=== PATIENT | male | born 1990 | race Caucasian/White ===

== ENCOUNTER 2024-12-07 19:34 | Inpatient (IN) | payer OTHER, SELFPAY ==
--- NOTE | 2024-12-07 14:48 | PM.EVENT ---
Documented by User: Meggan Morrell APRN 12/07/24 14:51 Event Note Date of Service: 12/07/24 Event Note: review with Dr. Bozena Fraser. Pt had a self inflicted injury with scissors to the neck with two trach injuries. Surgery was completed 11/30/24. Pt has absorbing sutures which will need no intervention. He has had no vocal changes, is metabolically stable, is on a regular diet and requires no further acute medical care. He is considered cleared for psychiatric transfer. Time Spent With Patient Time: Total time managing care of this patient today ____ minutes. Documented by User: Suhail Hsu MD 12/10/24 21:11 Event Note Date of Service: 12/10/24
--- OUTSIDE RECORDS SUMMARY | 2024-12-07 19:42 | XMS_ITS | Encounter Summary ---
Author Organization [facility] Address [address] [place] [address] Care Team Providers Care Scientific Director Name Role Phone Pcp, No Primary Care Provider Unavailabl e Encounter Details Date Type Department Care Team (Latest Contact Info) Description 12/01/2024 Travel Social History Tobacco Use Types Packs/Day Years Used Date Smoking Tobacco: Never Assessed Sex and Gender Information Value Date Recorded Sex Assigned at Male 11/30/2024 11:55 PM EST Legal Sex Male 10:49 PM EST Gender Identity Male 11/30/2024 11:55 PM EST Sexual Orientation Straight 11/30/2024 11 :55 PM EST documented as of this encounter Plan of Treatment Upcoming Encounters Date Type Department Care Team (Late st Contact Info) Description 12/18/2024 2:00 PM EST Consult [facility] [address] [place] [id number] documented as of this encounter Visit Diagnoses Not on filedocumented in this encounter Care Teams Scientific Director Relationship Specialty Start Date End Date PcpRoshni [id number] PCP - General 12/01/24 documented as of this encounter
--- OUTSIDE RECORDS SUMMARY | 2024-12-07 19:42 | XMS_ITS | Encounter Summary ---
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 minimize radiationexposure. Image post-processing was performed using Maximum IntensityProjection (MIP) reconstruction techniques. COMPARISON: None. FINDINGS: NON-CONTRAST CT BRAIN: Intra-axial structures: Sommer-white matter differentiation is normal. Thereis no evidence of acute infarct, hemorrhage, mass or mass effect. Ventricular system: Normal for age. Extra-axial spaces: Normal for age. Vasculature: The visualized vessels are normal. Orbits: The visualized orbits are normal. Calvarium: Normal. Paranasal sinuses: Appear normal where visible. CTA BRAIN: Anterior Circulation: Large Vessel Occlusion (ICA, M1, or proximal M2): None. Other Findings: No aneurysm or high grade stenosis identified. Posterior Circulation: Large Vessel Occlusion (Vertebral or basilar): None. Other Findings: No aneurysm or high grade stenosis identified. CTA NECK: Right Carotid Artery: No hemodynamically significant stenosis or dissection identified. Left Carotid Artery: No hemodynamically significant stenosis or dissection identified. Vertebral Arteries: No hemodynamically significant stenosis or dissection. Dural venous sinuses: Although the examination was not optimized fordetection of intracranial venous pathology, the major dural venous sinusesappear grossly patent where seen. Musculoskeletal: No acute abnormality identified. There is pneumomediastinum in the partially imaged upper mediastinum. Deepsoft tissue gas is seen in the midline neck in the retropharynx and in thebilateral carotid spaces and in the visceral space. Gas is also seen inthe superficial subcutaneous soft tissues in the midline infrahyoid region. No large neck soft tissuehematoma. At the ventral aspect of the midline trachea between the levelof the sternal notch and the thyroid gland, there is mild irregularity ofthe ventral wall of the trachea, with at least one focus of intramural gas in the trachea. This mayrepresent a site of airway injury. IMPRESSION: NON-CONTRAST HEAD CT: No evidence of acute intracranial pathology on the non-contrast CT. CTA BRAIN: No evidence of large vessel occlusion, high grade stenosis, or aneurysm inthe brain. CTA NECK: 1. No evidence of traumatic arterial injury. 2. Extensive soft tissue gas in the deep spaces of the neck as well as inthe partially imaged upper mediastinum. Given this in conjunction with anarea of irregularity involving the ventral, midline wall of the tracheadiscussed above, the findings are consistent with tracheal airway injury. NASCET criteria were used for stenosis measurement. At the time of interpretation, the patient had already been taken to theoperating room for repair of a tracheal injury. RS: [id number] Result Kandis Douglas MD IMG CT ORDERABLES Final Result * X-ray chest 1 view portable (11/30/2024 11:10 PM EST) Anatomical Region Laterality Modality Chest, Ortho Chest Digital Radio graphy 12/01/2024 9:39 AM EST Impressions 12/01/2024 9:40 AM EST FINDINGS/IMPRESSION: Lines/tubes: None. Lungs/pleura: The lung volumes are low. Accounting for this, grossly clear. Heart and mediastinum: Unremarkable. ?? Bones and soft tissues: No acute abnormality. RS: [id number] Narrative 12/01/2024 9:40 AM EST HISTORY: Polytrauma, blunt TECHNIQUE: Single view of the chest was acquired. Procedure Note Maximus Maciel Jr., MD - 12/01/2024 HISTORY: Polytrauma, blunt TECHNIQUE: Single view of the chest was acquired. FINDINGS/IMPRESSION: Lines/tubes: None. Lungs/pleura: The lung volumes are low. Accounting for this, grosslyclear. Heart and mediastinum: Unremarkable. Bones and soft tissues: No acute abnormality. RS: [id number] Result Kandis Douglas MD G DIAGNOSTIC IMAGING ORDERABLE S Final Result * Type and Screen (11/30/2024 10:59 PM EST) ABO A 12/01/2024 12:18 AM EST [facility] RH Negative 12/01/2024 12:18 AM EST [facility] Antibody Screen Negative 12/01/2024 12:18 AM EST [facility] Blood Venipuncture / Unknown 11/30/2024 10:59 PM EST 11/30/2024 11:05 PM EST Result Kandis Douglas MD BLOOD BANK TEST ORDERABLES Final Result [facility] Blood Bank [address] [place] [address] * (ABNORMAL) blood alcohol (11/30/2024 10:59 PM EST) Ethanol Lvl 149(H) <10 mg/dL 11/30/2024 11:29 PM EST [facility] Blood Structure of right ureter / Unknown Venipuncture / Unknown 11/30/2024 10:59 PM EST 11/30/2024 11:05 PM EST us Adeel Douglas MD LAB BLOOD ORDERABLES Final Resul t Performing Organization Address [facility] de Phone Number [facility] [address] [place] [phone] * APTT (11/30/2024 10:59 PM EST) APTT 32.3 25.1 - 36.5 seconds 11/30/2024 11:19 PM EST [facility] Blood Structure of right ureter / Unknown Venipuncture / Unknown 11/30/2024 10:59 PM EST 11/30/2024 11:05 PM EST Narrative [facility] - 11/30/2024 11:19 PM EST New reference range reflects new method. us Adeel Douglas MD LAB BLOOD ORDERABLES Final Resul t Performing Organization Address [facility] de Phone Number [facility] [address] [place] [phone] * Protime-INR (11/30/2024 10:59 PM EST) Protime 10.8 9.4 - 12.5 seconds 11/30/2024 11:19 PM EST [facility] INR 0.93 0.79 - 1.06 11/30/2024 11:19 PM EST [facility] Blood Structure of right ureter / Unknown Venipuncture / Unknown 11/30/2024 10:59 PM EST 11/30/2024 11:05 PM EST Narrative [facility] - 11/30/2024 11:19 PM EST New reference range reflects new method INR Recommendations for Oral Anticoagulant Therapy ? Populations ?INR Value ? Low Intensity OAC Therapy ?1.5-2.0 Mod Intensity OAC Therapy ?2.0-3.0 High Intensity OAC Therapy ?? 2.5-4.0 us Adeel Douglas MD LAB BLOOD ORDERABLES Final Resul t [facility] [address] [place] [address] * (ABNORMAL) Basic metabolic panel (11/30/2024 10:59 PM EST) Sodium 144 136 - 145 mEq/L 11/30/2024 11:27 PM EST [facility] Potassium 3.6 3.5 - 5.1 mEq/L 11/30/2024 11:27 PM [facility] Chloride 111(H) 98 - 109 mEq/L 11/30/2024 11:27 PM [facility] CO2 24 20 - 31 mEq/L 11/30/2024 11:27 PM [facility] Anion Gap 9 4 - 15 mEq/L 11/30/2024 11:27 PM EST [facility] Glucose 118(H) 70 - 100 mg/dL 11/30/2024 11:27 PM [facility] Creatinine 0.98 0.60 - 1.10 mg/dL 11/30/2024 11:27 PM [facility] eGFR (Male) >60 60 - 115 mL/min 11/30/2024 11:27 PM [facility] BUN 10 9 - 23 mg/dL 11/30/2024 11:27 PM [facility] Calcium 9.1 8.3 - 10.6 mg/dL 11/30/2024 11:27 PM [facility] Blood Structure of right ureter / Unknown Venipuncture / Unknown 11/30/2024 10:59 PM EST 11/30/2024 11:05 PM EST Narrative [facility] - 11/30/2024 11:27 PM EST The calcium reference range has been changed as of 09/18/2024. us Adeel Douglas MD LAB BLOOD ORDERABLES Final Resul t [facility] [address] [place] [address] * (ABNORMAL) CBC and Auto Differential (11/30/2024 10:59 PM EST) WBC 7.3 4.8 - 11.2 10*3/??L 11/30/2024 11:10 PM EST [facility] RBC 4.52 4.00 - 5.90 10*6/??L 11/30/2024 11:10 PM [facility] HGB 13.2(L) 14.0 - 17.2 g/dL 11/30/2024 11:10 PM [facility] HCT 39.1(L) 40.0 - 52.0 % 11/30/2024 11:10 PM [facility] MCV 86.5 82.0 - 98.0 fL 11/30/2024 11:10 PM EST [facility] MCH 29.3 27.0 - 35.0 pg 11/30/2024 11:10 PM EST [facility] MCHC 33.9 32.0 - 37.0 g/dL 11/30/2024 11:10 PM EST [facility] RDW 14.6 12.0 - 15.0 % 11/30/2024 11:10 PM EST [facility] PLT 275 150 - 400 10*3/??L 11/30/2024 11:10 PM [facility] MPV 7.4 7.0 - 14.0 fL 11/30/2024 11:10 PM EST [facility] Neut % 52.0 45.0 - 85.0 % 11/30/2024 11:10 PM EST [facility] Lymph % 40.0 15.0 - 45.0 % 11/30/2024 11:10 PM EST [facility] [place] % 4.8 0.0 - 12.0 % 11/30/2024 11:10 PM EST [facility] Eos % 2.6 0.0 - 7.0 % 11/30/2024 11:10 PM EST [facility] Baso % 0.6 0.0 - 3.0 % 11/30/2024 11:10 PM EST [facility] NRBC% 0 0 /100 WBC /100 WBC 11/30/2024 11:10 PM EST [facility] Neut # 3.8 2.2 - 9.5 10*3/??L 11/30/2024 11:10 PM EST [facility] [place] # 2.9 0.7 - 5.0 10*3/??L 11/30/2024 11:10 PM EST [facility] [place] # 0.4 0.0 - 1.3 10*3/??L 11/30/2024 11:10 PM EST [facility] Eos # 0.2 0.0 - 0.4 10*3/??L 11/30/2024 11:10 PM EST [facility] Baso # 0.0 0.0 - 0.3 10*3/??L 11/30/2024 11:10 PM EST [facility] Blood Venipuncture / Unknown 11/30/2024 10:59 PM EST 11/30/2024 11:06 PM EST us Adeel Douglas MD LAB BLOOD ORDERABLES Final Resul t [facility] [address] [place] [address] documented in this encounter Visit Diagnoses Not on filedocumented in this encounter Admitting Diagnoses Diagnosis Perforation of the trachea documented in this encounter Administered Medications Inactive Administered Medications - up to 3 most recent administrations Medication Order MAR Action Action Date Dose Rate Site acetaminophen (TYLENOL) tablet 650 mg 650 mg, Oral, Every 4 hours PRN, mild pain (1-3), Starting on Tue12/04/24 at 2102, Adult MAX: NOT to exceed 4 grams of ACETAMINOPHEN per 24 hrs from ALL sources. Given 12/07/2024 4:18 PM EST 650 mg Given 12/05/2024 9:57 PM EST 650 mg ARIPiprazole (ABILIFY) tablet 5 mg 5 mg, Oral, At bedtime, First dose (after last reorder) on [facility] 12/06/24 at 2100 Given 12/06/2024 9:14 PM EST 5 mg busPIRone (BUSPAR) tablet 10 mg 10 mg, Oral, 3 times daily, First dose (after last reorder) on [facility] 12/06/24 at 1300 Given 12/07/2024 12:37 PM EST 10 mg Given 12/07/2024 9:15 AM EST 10 mg Given 12/06/2024 9:15 PM EST 10 mg enoxaparin (LOVENOX) injection prefilled syringe 40 mg 40 mg, Subcutaneous, Every 24 hours scheduled, First dose on Tue12/01/24 at 0900, Pharmacy to automatically adjust dose for renal impairment. SC ADMINISTRATION INSTRUCTIONS: - Administer by deep subcutaneous injection with patient lying down. - Alternate injection sites between left and right anterolateral and left and right posterolateral abdominal wall. - Do not rub injection site after completion of injection. Warning - Needlestick Risk! Push syringe plunger in fully after administration to activate safety device. DO NOT MIX with other injections or infusions. Given 12/04/2024 9:23 AM EST 40 mg Abdominal Tissue Given 12/03/2024 8:29 AM EST 40 mg Ab dominal Tissue Given 12/02/2024 8:36 AM EST 40 mg Ab dominal Tissue folic acid tablet 1 mg 1 mg, Oral, Daily, First dose on Tue12/07/24 at 0900, This patient has met the following criteria for the conversion from IV to PO. The criteria met is as follows: 1) Must have a functioning GI tract (full liquid diet or better). 2) Must have received 2 oral medications prior to the conversion occurring 3) Has no severe or persistent vomiting. The IV formulation has been discontinued, the oral has been entered with a therapeutic interchange. Given 12/07/2024 9:11 AM EST 1 mg ketorolac (TORADOL) injection 15 mg 15 mg, Intravenous, Every 6 hours PRN, moderate pain (4-6), Starting on Tue12/05/24 at 1043, For 5 days LORazepam (ATIVAN) tablet 1 mg 1 mg, Oral, 3 times daily PRN, agitation, anxiety, Starting on Tue12/03/24 at 1543 Given 12/07/2024 4:18 PM EST 1 m g Given 12/07/2024 12:37 PM EST 1 mg Given 12/06/2024 5:35 PM EST 1 mg melatonin tablet 3 mg 3 mg, Oral, At bedtime PRN, sleep, Starting on Tue12/03/24 at 1543 Given 12/05/2024 8:06 PM EST 3 mg Given 12/04/2024 9:01 PM EST 3 mg ondansetron (ZOFRAN) injection 4 mg 4 mg, Intravenous, Every 6 hours PRN, nausea, Starting on Tue12/01/24 at 0255 Given 12/04/2024 2:40 PM EST 4 mg oxyCODONE (ROXICODONE) immediate release tablet 5 mg 5 mg, Oral, Every 4 hours PRN, severe pain (7-10), Starting on Tue12/05/24 at 1119, Look-alike / Sound-alike Medication Given 12/07/2024 9:11 AM EST 5 mg Given 12/06/2024 11:39 PM EST 5 mg Given 12/06/2024 5:35 PM EST 5 mg pantoprazole (PROTONIX) delayed release EC tablet 40 mg 40 mg, Oral, Daily, First dose on Tue12/06/24 at 0900, DELAYED-RELEASE TABLETS SHOULD NOT BE SPLIT, CRUSHED OR CHEWED Given 12/07/2024 9:11 AM EST 40 mg Given 12/06/2024 9:44 AM EST 40 mg prazosin (MINIPRESS) capsule 2 mg 2 mg, Oral, At bedtime, First dose on Tue12/05/24 at 2100, Hold for SBP below 100 mmHg Given 12/06/2024 9:14 PM EST 2 mg Given 12/05/2024 8:04 PM EST 2 mg tamsulosin (FLOMAX) capsule 0.4 mg 0.4 mg, Oral, Daily, First dose on Tue12/03/24 at 1615, Capsule may be opened but granules from capsule should NOT BE CHEWED, CRUSHED or DISSOLVED. Contents of capsule may be administered in a small quantity of liquid or soft food. Given 12/07/2024 9:11 AM EST 0.4 mg Given 12/06/2024 9:44 AM EST 0.4 mg Given 12/04/2024 9:22 AM EST 0.4 mg thiamine (VITAMIN B-1) tablet 200 mg 200 mg, Oral, Daily, First dose on [facility] 12/06/24 at 0945 Given 12/07/2024 9:11 AM EST 200 mg Given 12/06/2024 9:44 AM EST 200 mg topiramate (TOPAMAX) tablet 25 mg 25 mg, Oral, 2 times daily, First dose (after last reorder) on [facility] 12/06/24 at 1300, Due to bitter taste it is not recommended to crush, break, or chew immediate release tablet if taken orally. Given 12/07/2024 9:11 AM EST 25 mg Given 12/06/2024 9:14 PM EST 25 mg Given 12/06/2024 1:04 PM EST 25 mg documented in this encounter Active and Recently Administered Medications Times are shown in EST. Scheduled Medication Order 12/05/2024 12/06/2024 12/07/2024 ARIPiprazole (ABILIFY) tablet 5 mg 5 mg, Oral, At bedtime, First dose (after last reorder) on [facility] 12/06/24 at 2100 2114 (Given - Provider: Natacha Reyes, TIMOTEO) busPIRone (BUSPAR) tablet 10 mg 10 mg, Oral, 3 times daily, First dose (after last reorder) on [facility] 12/06/24 at 1300 1304 (Given - Provider: Aliyah Welch RN)2115 (Given - Provider: Natacha Reyes, TIMOTEO) 0915 (Given - Provider: Jimenez Reid, TIMOTEO)1237 (Given - Provider: Jimenez Reid RN) chlorhexidine gluconate topical 1 Application () 1 Application, Topical, Every 24 hours, First dose on [facility] 12/01/24 at 2200, For 5 days, -Scrub full body (do not apply above jawline) daily for 5 (five) days. For patients with invasive lines and/or devices, obtain a new order to continue with CHG beyond 5 (five) days of initial treatment; may discontinue the order upon their removal. -Chlorhexidine gluconate (CHG) product selection is based on unit supply. *FOR TOPICAL USE* 2205 (Given - Provider: Natacha Reyes RN) cloNIDine (CATAPRES) tablet 0.1 mg 0.1 mg, Oral, Daily, First dose (after last reorder) on [facility] 12/06/24 at 1200, Hold for SBP below 100 mmHg or HR below 50 Look-alike / Sound-alike Medication 1252 (Not Given - Provider: Aliyah Welch RN - Reason: Patient/family refused) 0932 (Not Given - Provider: Jimenez Reid RN - Reason: Not Clinically Indicated) enoxaparin (LOVENOX) injection prefilled syringe 40 mg 40 mg, Subcutaneous, Every 24 hours scheduled, First dose on 12/01/24 at 0900, Pharmacy to automatically adjust dose for renal impairment. [place] ADMINISTRATION INSTRUCTIONS: - Administer by deep subcutaneous injection with patient lying down. - Alternate injection sites between left and right anterolateral and left and right posterolateral abdominal wall. - Do not rub injection site after completion of injection. Warning - Needlestick Risk! Push syringe plunger in fully after administration to activate safety device. DO NOT MIX with other injections or infusions. 1027 (Not Given - Provider: Jimenez Reid RN - Reason: Patient/family refused) 0917 (Not Given - Provider: Aliyah Welch RN - Reason: Patient/family refused) 0932 (Not Given - Provider: Jimenez Reid RN - Reason: Patient/family refused) folic acid 1 mg in sodium chloride (NS) 0.9 % 50 mL IVPB (CANCELED) 1 mg, Intravenous, Administer over 60 Minutes, Daily at 1200, First dose on 12/01/24 at 1200, PHARMACY MIXED IV *See PHARMACY DROP OFF LOCATION* Refrigerate 1238 (Not Given - Provider: Jimenez Reid RN - Reason: Patient/family refused) 1129 (New Bag - Provider: Aliyah Welch, TIMOTEO)1230 (Stopped - Provider: Aliyah Welch RN) folic acid tablet 1 mg 1 mg, Oral, Daily, First dose on Tue12/07/24 at 0900, This patient has met the following criteria for the conversion from IV to PO. The criteria met is as follows: 1) Must have a functioning GI tract (full liquid diet or better). 2) Must have received 2 oral medications prior to the conversion occurring 3) Has no severe or persistent vomiting. The IV formulation has been discontinued, the oral has been entered with a therapeutic interchange. 0911 (Given - Provider: Jimenez Reid RN) mupirocin (BACTROBAN) 2 % ointment 1 Application () 1 Application, Each Nostril, 2 times daily, First dose on 12/01/24 at 0900, For 5 days, Apply to nares twice daily for 5 (five) days. For patients requiring surgery, the goal is to complete a minimum of 2 (two) applications prior to surgery. *For Topical Use* 1027 (Not Given - Provider: Jimenez Reid RN - Reason: Patient/family refused)2204 (Given - Provider: Natacha Reyes RN) pantoprazole (PROTONIX) delayed release EC tablet 40 mg 40 mg, Oral, Daily, First dose on Tue12/06/24 at 0900, DELAYED-RELEASE TABLETS SHOULD NOT BE SPLIT, CRUSHED OR CHEWED 09 (Given - Provider: Aliyah Welch RN) 0911 (Given - Provider: Jimenez Reid RN) prazosin (MINIPRESS) capsule 2 mg 2 mg, Oral, At bedtime, First dose on Tue12/05/24 at 2100, Hold for SBP below 100 mmHg 2003 (Given - Provider: Natacha Reyes RN) 2113 (Given - Provider: Natacha Reyes RN) tamsulosin (FLOMAX) capsule 0.4 mg 0.4 mg, Oral, Daily, First dose on 12/03/24 at 1615, Capsule may be opened but granules from capsule should NOT BE CHEWED, CRUSHED or DISSOLVED. Contents of capsule may be administered in a small quantity of liquid or soft food. 1027 (Not Given - Provider: Jimenez Reid RN - Reason: Patient/family refused) 0944 (Given - Provider: Aliyah Welch RN) 0911 (Given - Provider: Jimenez Reid RN) thiamine (VITAMIN B-1) tablet 200 mg 200 mg, Oral, Daily, First dose on Talya 12/06/24 at 0945 0944 (Given - Provider: Aliyah Welch, TIMOTEO) 0911 (Given - Provider: Jimenez Reid, TIMOTEO) topiramate (TOPAMAX) tablet 25 mg 25 mg, Oral, 2 times daily, First dose (after last reorder) on Talya 12/06/24 at 1300, Due to bitter taste it is not recommended to crush, break, or chew immediate release tablet if taken orally. 1304 (Given - Provider: Aliyah Welch RN)2114 (Given - Provider: Natacha Reyes RN) 0911 (Given - Provider: Jimenez Reid RN) PRN Medication Order 12/05/2024 12/06/2024 12/07/2024 acetaminophen (TYLENOL) tablet 650 mg 650 mg, Oral, Every 4 hours PRN, mild pain (1-3), Starting on Tue12/04/24 at 2102, Adult MAX: NOT to exceed 4 grams of ACETAMINOPHEN per 24 hrs from ALL sources. 215 (Given - Provider: Natacha Reyes RN) 1618 (Given - Provider: Jimenez Reid RN) ketorolac (TORADOL) injection 15 mg 15 mg, Intravenous, Every 6 hours PRN, moderate pain (4-6), Starting on Tue12/05/24 at 1043, For 5 days LORazepam (ATIVAN) tablet 1 mg 1 mg, Oral, 3 times daily PRN, agitation, anxiety, Starting on Tue12/03/24 at 1543 1032 (Given - Provider: Jimenez Reid RN) 0944 (Not Given - Provider: Aliyah Welch RN - Reason: Patient/family refused)1735 (Given - Provider: Aliyah Welch RN) 1237 (Given - Provider: Jimenez Reid, TIMOTEO)1618 (Given - Provider: Jimenez Reid, TIMOTEO) melatonin tablet 3 mg 3 mg, Oral, At bedtime PRN, sleep, Starting on 12/03/24 at 1543 2005 (Given - Provider: Natacha Reyes RN) ondansetron (ZOFRAN) injection 4 mg 4 mg, Intravenous, Every 6 hours PRN, nausea, Starting on 12/01/24 at 0255 oxyCODONE (ROXICODONE) immediate release tablet 5 mg 5 mg, Oral, Every 4 hours PRN, severe pain (7-10), Starting on Tue12/05/24 at 1119, Look-alike / Sound-alike Medication 1134 (Given - Provider: Jimenez Reid, TIMOTEO)2005 (Given - Provider: Natacha Reyes RN) 0946 (Given - Provider: Aliyah Welch, TIMOTEO)1735 (Given - Provider: Aliyah Welch RN)2339 (Given - Provider: Neva Salazar RN) 0911 (Given - Provider: Jimenez Reid RN) documented in this encounter Care Teams Site Safety Coordinator Relationship Specialty Start [place] [id number] PCP - General 12/01/24 documented as of this encounter
--- OUTSIDE RECORDS SUMMARY | 2024-12-07 19:42 | XMS_ITS | Encounter Summary ---
Author Organization [facility] Address [address] [place] [address] Care Team Providers Care Authorizer Name Role Phone Pcp, No Primary Care Provider Unavailabl e Reason for Visit * Auth/Cert Specialty Diagnoses / Procedures Referred By Contac t Referred To Contact Diagnoses Perforation of the trachea Referral ID Status Reason Start Date Expiration Date Visits Re quested Visits Authorized [id number] 1 1 Encounter Details Date Type Department Care Team (Late st Contact Info) Description 12/01/2024 12:32 AM EST Anesthesia Event [facility] [address] [place] [phone] Irvin Moncada MD [address] [place] [id number] Anesthesia Record Procedure Summary Procedure Name Responsible Anesthesiologist Anesthesia Start Time Anesthesia Stop Time NECK EXPLORATION, TRACHEAL REPAIR Irvin Moncada MD 12/01/24 0032 12/01/24 0244 Events Date Time Event Comment 12/01/2024 0005 0032 AN Equip Check 0032 Anesthesia Ready 0032 An Start 0032 An Start Data 0035 An Induction 0036 An Intubation 0228 an stop data 0231 Quick Note Pt transferred to ICU with 100% fio2 ambu, full ASA monitors, pt stable for transport 0244 PACU Handoff Handoff communi cation to SCIENTIST including the followin. Allergies 2. Surgical Procedure 3. Type of anesthetic 4. Relevant PMHx 5. Surgical/Anesthetic Complications 6. Pre-operative cognitive function 7. Lines/tubes/catheters 8. Fluid management 9. Pain/antiemetic management 10. Assessment of arrival vital signs 11. Blood Loss 12. Medications administered during procedure including last dose and time 13. Address any SCIENTIST questions before leaving. 0244 An Stop Meds Name Total midazolam (VERSED) injection 2 mg/2 mL 2 mg propofol (DIPRIVAN) injection 10 mg/mL 2 00 mg lidocaine (XYLOCAINE) 2 % local injectio n 50 mg fentaNYL (SUBLIMAZE) injection 150 mcg rocuronium (ZEMURON) 50 mg/5 mL injectio n 150 mg dexamethasone (DECADRON) injection 4 mg/ mL 10 mg ePHEDrine injection 5 mg/mL syringe 15 m g PHENYLephrine (EMORY-SYNEPHRINE) injection 120 mcg succinylcholine (QUELICIN) 20 mg/mL inje ction 100 mg propofol (DIPRIVAN) infusion 10 mg/mL 80 4.33 mg ceFAZolin (ANCEF) injection 2 g dexmedeTOMIDine (PRECEDEX) injection 200 mcg/2 mL vial 6 mcg lactated ringer's infusion 1,000 mL * Agents Name O2 Inspired O2 N2O Air Sevoflurane Inspired Sevoflurane * Blood No blood administrations on file. Lines, Drains, and Airways Type Details Placement Removal Incision 12/01/24; 222; Neck ; Other (Comment) 12/01/24222 by Michaela Lux RN ETT Placement Date: 06/17; Placement Time: 003; Mask Ventilation: Mask ventilation not attempted (0); Technique: Video laryngoscopy, Stylet, Cricoid Pressure, Rapid sequence; Type: Cuffed, Oral, Inflated; Tube Size: 8 mm; Laryngoscope: Quiros; Blade Size: 3; Location: Oral; Grade View: 1; Insertion Attempts: 1; Placement Verification: Auscultation, End tidal CO2; Secured at: 22 cm; Airway Comment: RSI, tegaderm dressing over neck wound that does inflate with deep breaths, cricoid pressure, no trauma, #8.0 ETT passed easily with g1 view video visualization; Placed By: Anesthesiologist; Removal Date: 12/03/24; Removal Time: 0715 (removed by patient) 12/01/24 0036 by Samanta Harris CRNA 12/03/24714 by Dagmar Patrick RN Peripheral IV Placement Date: 06/17; Placement Time: 0258; Catheter Size: 18 G; Orientation: Left, Posterior; Location: Hand; Site Prep: Alcohol; Local Anes: None; Technique: Anatomical landmarks; Inserted by: ED; Removal Date: 12/04/24; Removal Time: 1315; Removal Reason: Removed by patient 12/01/24 0258 by Matilda Woodall RN 12/04/24 1316 by Lety Clemente RN documented in this encounter Social History Tobacco Use Types Packs/Day Years Used Date Smoking Tobacco: Never Assessed Sex and Gender Information Value Date Recorded Sex Assigned at Male 11/30/2024 11:55 PM EST Legal Sex Male 10:49 PM EST Gender Identity Male 11/30/2024 11:55 PM EST Sexual Orientation Straight 11/30/2024 11 :55 PM EST documented as of this encounter OR Notes * Anesthesia Postprocedure Evaluation - Irvin Moncada MD - 12/01/2024 4:10 AM EST Patient: Michael Turner Procedure(s): NECK EXPLORATION, TRACHEAL REPAIR (N/A) BRONCHOSCOPY, FLEXIBLE ESOPHAGOGASTRODUODENOSCOPY Anesthesia type: general Vitals: Vitals Value Taken Time BP 85/44 12/01/24 0400 Temp 36.8 ??C 12/01/24 0400 Pulse 57 12/01/24 0410 Resp 12 12/01/24 0410 SpO2 97 % 12/01/24 0410 Vitals shown include unfiled device data. Anesthesia Post Evaluation Patient location during evaluation: ICU Patient participation: complete - patient cannot participate Post-procedure mental status: sedated. Pain management: adequate Airway patency: intubated. Cardiovascular status: stable Respiratory status: ventilated. Hydration status: adequate No notable events documented. 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 Use of blood products discussed with patient who consented to blood products. Post-Op Plan: PACU documented in this encounter Plan of Treatment Upcoming Encounters Date Type Department Care Team (Late st Contact Info) Description 12/18/2024 2:00 PM EST Consult [facility] [address] [place] [address], [place] [phone] documented as of this encounter Visit Diagnoses Not on filedocumented in this encounter Administered Medications Inactive Administered Medications - up to 3 most recent administrations Medication Order MAR Action Action Date Dose Rate Site ceFAZolin (ANCEF) injection Intravenous, As needed, Starting on 12/01/24 at 0105, Anesthesia Intra-op Given 12/01/2024 12:50 AM EST 2 g dexAMETHasone (DECADRON) injection Intravenous, As needed, Starting on 12/01/24 at 0219, Anesthesia Intra-op Given 12/01/2024 2:19 AM EST 10 mg dexmedeTOMIDine (PRECEDEX) injection Intravenous, As needed, Starting on 12/01/24 at 0225, Anesthesia Intra-op Given 12/01/2024 2:25 AM EST 6 mcg ePHEDrine sulfate injection Intravenous, As needed, Starting on 12/01/24 at 0059, Anesthesia Intra-op Given 12/01/2024 1:45 AM EST 5 mg Given 12/01/2024 1:01 AM EST 5 mg Given 12/01/2024 12:59 AM EST 5 mg fentaNYL (SUBLIMAZE) injection Intravenous, As needed, Starting on 12/01/24 at 0035, Anesthesia Intra-op Given 12/01/2024 2:25 AM EST 50 mcg Given 12/01/2024 12:35 AM EST 100 mcg lactated Ringer's infusion Intravenous, Continuous PRN, Starting on 12/01/24 at 0032, Anesthesia Intra-op New Bag 12/01/2024 2:33 AM EST New Bag 12/01/2024 12:32 AM EST lidocaine 2 % (XYLOCAINE) injection (Multiple-dose vial) Intravenous, As needed, Starting on 12/01/24 at 0035, Anesthesia Intra-op Given 12/01/2024 12:35 AM EST 50 mg midazolam (VERSED) injection Intravenous, As needed, Starting on 12/01/24 at 0225, Anesthesia Intra-op Given 12/01/2024 2:25 AM EST 2 mg PHENYLephrine (EMORY-SYNEPHRINE) injection Intravenous, As needed, Starting on 12/01/24 at 0155, Anesthesia Intra-op Given 12/01/2024 2:10 AM EST 40 mcg Given 12/01/2024 1:55 AM EST 40 mcg Given 12/01/2024 1:50 AM EST 40 mcg propofol (DIPRIVAN) infusion 10 mg/mL Intravenous, Continuous PRN, Starting on 12/01/24 at 0105, Anesthesia Intra-op New Bag 12/01/2024 1:05 AM EST 100 mcg/kg/min 59.58 mL/hr propofol (DIPRIVAN) injection Intravenous, As needed, Starting on 12/01/24 at 0035, Anesthesia Intra-op Given 12/01/2024 12:35 AM EST 200 mg rocuronium (ZEMURON) injection HIGH ALERT MED Intravenous, As needed, Starting on 12/01/24 at 0050, Anesthesia Intra-op Given 12/01/2024 2:11 AM EST 50 mg Given 12/01/2024 1:20 AM EST 50 mg Given 12/01/2024 12:50 AM EST 50 mg succinylcholine (QUELICIN) injection HIGH ALERT MED Intravenous, As needed, Starting on 12/01/24 at 0035, Anesthesia Intra-op Given 12/01/2024 12:35 AM EST 100 mg documented in this encounter Care Teams Authorizer Relationship Specialty Start [place] [id number] PCP - General 12/01/24 documented as of this encounter
--- OUTSIDE RECORDS SUMMARY | 2024-12-07 19:42 | XMS_ITS | Encounter Summary ---
Author Organization [facility] Address [address] [place] [address] Care Team Providers Care Can Conveyor Feeder Name Role Phone Pcp, No Primary Care Provider Unavailabl e Reason for Referral * Surgical (Routine/First Available) - Authorized Specialty Diagnoses / Procedures Referred By Charles t Referred To Contact Trauma Surgery Adeel Sood MD [address] [place] [phone] Phone: tel: fax: Referral ID Status Reason Start Date Expiration Date V isits Requested Visits Authorized [id number] Authorized 12/07/2024 12/07/2025 1 1 Encounter Details Date Type Department Care Team (Late st Contact Info) Description 12/07/2024 Orders Only [facility] [address] [place] [phone] Adeel Sood MD [address] [place] [address] Social History Tobacco Use Types Packs/Day Years [...] Info) Description 12/18/2024 2:00 PM EST Consult [facility] [address] [place] [phone] Scheduled Referrals Name Type Priority Associated Diagnoses Order Schedule Outpatient referral to Trauma / Acute Care Outpatient Referral First Available/Routin e Ordered: 12/07/2024 documented as of this encounter Visit Diagnoses Not on filedocumented in this encounter Care Teams Can Conveyor Feeder Relationship Specialty [place] [id number] PCP - General 12/01/24 documented as of this encounter
--- OUTSIDE RECORDS SUMMARY | 2024-12-07 19:43 | XMS_ITS | Clinical Summary ---
Author Organization [employer] Address [address] [place] [address] [address] [place] [address] Care Team Providers Care Neurological Physiotherapist Name Role Phone Bella Hidalgo NP Primary Care Provider [phone] Active Problems Patient Care Coordination No te Formatting of this note migh t be different from the original. Pt has being discharged from [facility] on 06/23/2023 was enrolled with [facility] No additional problems on file Encounters Date Type Department Care Team Description 09/25/2024 Telephone [facility] Management [address] [place] [phone] Stephanie Mo 09/18/2024 Telephone [facility] Management [address] [place] [phone] Stephanie Mo from Last 3 Months Social History Tobacco Use Types Packs/Day Years Used Date Smoking Tobacco: Never Assessed Sex and Gender Information Value Date Recorded Sex Assigned at Male 08/27/2024 3:54 PM EST Legal Sex Male 4:37 PM EDT Gender Identity Male 08/20/2022 4:37 PM EDT Sexual Orientation Lesbian or No 08/20/2022 4: 37 PM EDT Plan of Treatment Upcoming Encounters Date Type Department Care Team (Late st Contact Info) Description 04/30/2025 8:20 AM EDT Office Visit [facility] [address] [place] [address] Bella Hidalgo NP [address] [place] [address] Health Maintenance Due Date Last Done Comments Depression Screening 1992 HIV Screening 1992 Lipid Panel 1992 SDOH Screening 1992 Alcohol/Substance Use Screening 2004 Tobacco Screening 2004 Family Planning (PISQ) 2007 Hepatitis C Screening 2010 DTaP/Tdap/Td Vaccines (1 - Tdap) 2011 Hepatitis B Vaccines (1 of 3 - 19+ 3-dose series) 2011 Pneumococcal Vaccine: Pediat rics (0 to 5 Years) and At-Risk Patients (6 to 49) Years) (1 of 2 - PCV) 2011 COVID-19 Vaccine ( - 2023-2 5 season) 2024 Influenza Vaccine (#1) 2024 Zoster Vaccines (1 of 2) 2042 RSV Patients and Pa tients Aged 60 years or older (1 - 1-dose 75+ series) 2067 HIB Vaccines Aged Out No longer eligi ble based on patient's age to complete this topic HPV Vaccines Aged Out No longer eligi ble based on patient's age to complete this topic Hepatitis A Vaccines Aged Out No long er eligible based on patient's age to complete this topic IPV Vaccines Aged Out No longer eligi ble based on patient's age to complete this topic Meningococcal Vaccine Aged Out No rena zainab eligible based on patient's age to complete this topic RSV under 20 months Aged Out No longe r eligible based on patient's age to complete this topic Rotavirus Vaccines Aged Out No longer eligible based on patient's age to complete this topic Insurance [employer] Care Teams Neurological Physiotherapist Relationship Specialty Start Date End Date Bella Hidalgo NP [address] [place] [phone] PCP - General Internal Medicine 11/13/24
--- OUTSIDE RECORDS SUMMARY | 2024-12-07 19:43 | XMS_ITS | Encounter Summary ---
Author Organization [facility] Address [address] [place] [address] Care Team Providers Care Motorcycle Subassembly Repairer Name Role Phone Pcp, No Primary Care Provider Unavailabl e Encounter Details Date Type Department Care Team (Late st Contact Info) Description 11/30/2024 Procedure Pass [facility] [address] [place] [phone] Social History Tobacco Use Types Packs/Day Years [...] Info) Description 12/18/2024 2:00 PM EST Consult [facility] [address] [place] [phone] documented as of this encounter Visit Diagnoses Not on filedocumented in this encounter Care Teams Motorcycle Subassembly Repairer Relationship Specialty Start [place] [id number] PCP - General 12/01/24 documented as of this encounter
--- OUTSIDE RECORDS SUMMARY | 2024-12-07 19:43 | XMS_ITS | Encounter Summary ---
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 was in an [...] PM EST Case discussed with team at [facility]. Patient does not require any medical needs [...] 0541 by Matilda Woodall RN Outcome: Progressing Goal: [...] or other facility with appropriate resources 12/01/2024 0542 by Matilda Woodall RN Outcome: Progressing 12/01/2024 0541 by Matilda Woodall RN Outcome: Progressing * [...] discussion with attending. 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 About jail up the trachea, 2 lacerations were notedin [...] then reapproximated with 3-0 Vicryl in multiple [id number]. The platysma was closed with a running [...] Info) Description 12/18/2024 2:00 PM EST Consult [address] [id number] documented as of this encounter Procedures Procedure [...] EST 12/06/2024 12:26 PM EST us Rom Crystal DO LAB BLOOD ORDERABLES Final Re sult [facility] [address] [place] [address] * Phosphorus (12/06/2024 11:23 AM EST) Phosphorus 3.2 2.4 - 5.1 mg/dL 12/06/2024 12:31 PM EST [facility] Blood Structure of part of right upper limb / Unknown Venipuncture / Unknown 12/06/2024 11:23 AM EST 12/06/2024 12:08 PM EST Franko Mohan GENERAL ASSEMBLER LAB BLOOD ORDERABLES Final R esult Performing Organization Address [facility] Co de Phone Number [facility] [address] [place] [address] * Magnesium (12/06/2024 11:23 AM EST) Magnesium 2.0 1.6 - 2.6 mg/dL 12/06/2024 12:31 PM EST [facility] Blood Structure of part of right upper limb / Unknown Venipuncture / Unknown 12/06/2024 11:23 AM EST 12/06/2024 12:08 PM EST Franko Mohan GENERAL ASSEMBLER LAB BLOOD ORDERABLES Final R esult Performing Organization Address [facility] Co de Phone Number [facility] [address] [place] [phone] * (ABNORMAL) Comprehensive metabolic panel (12/06/2024 11:23 AM EST) Sodium 138 136 - 145 mEq/L 12/06/2024 12:41 PM EST [facility] Potassium 4.4 3.5 - 5.1 mEq/L 12/06/2024 12:41 PM EST [facility] Chloride 103 98 - 109 mEq/L 12/06/2024 12:41 PM EST [facility] CO2 29 20 - 31 mEq/L 12/06/2024 12:41 PM [facility] Anion Gap 6 4 - 15 mEq/L 12/06/2024 12:41 PM [facility] Glucose 85 70 - 100 mg/dL 12/06/2024 12:41 PM EST [facility] Creatinine 0.91 0.60 - 1.10 mg/dL 12/06/2024 12:41 PM EST [facility] eGFR (Male) >60 60 - 115 mL/min 12/06/2024 12:41 PM EST [facility] BUN 18 9 - 23 mg/dL 12/06/2024 12:41 PM [facility] Calcium 10.0 8.3 - 10.6 mg/dL 12/06/2024 12:41 PM [facility] Total Protein 7.4 5.7 - 8.2 g/dL 12/06/2024 12:41 PM [facility] Albumin 4.8 3.2 - 4.8 g/dL 12/06/2024 12:41 PM [facility] A/G Ratio 1.8 1.0 - 2.3 12/06/2024 12:41 PM [facility] Total Bilirubin 0.3 0.2 - 1.0 mg/dL 12/06/2024 12:41 PM [facility] AST 15 13 - 40 U/L 12/06/2024 12:41 PM [facility] Alkaline Phosphatase 64 46 - 116 IU/L 12/06/2024 12:41 PM [facility] ALT 43(H) 7 - 40 U/L 12/06/2024 12:41 PM [facility] Blood Structure of part of right upper limb / Unknown Venipuncture / Unknown 12/06/2024 11:23 AM EST 12/06/2024 12:08 PM EST [facility] - 12/06/2024 12:41 PM EST The calcium reference range has been changed as of 09/18/2024. us Franko Mohan GENERAL ASSEMBLER LAB BLOOD ORDERABLES Final R esult [facility] [address] [place] [address] * CBC and Auto Differential (12/06/2024 11:23 AM EST) WBC 6.4 4.8 - 11.2 10*3/??L 12/06/2024 12:17 PM EST [facility] RBC 4.94 4.00 - 5.90 10*6/??L 12/06/2024 12:17 PM [facility] HGB 14.2 14.0 - 17.2 g/dL 12/06/2024 12:17 PM [facility] HCT 42.2 40.0 - 52.0 % 12/06/2024 12:17 PM [facility] MCV 85.3 82.0 - 98.0 fL 12/06/2024 12:17 PM [facility] MCH 28.6 27.0 - 35.0 pg 12/06/2024 12:17 PM [facility] MCHC 33.6 32.0 - 37.0 g/dL 12/06/2024 12:17 PM [facility] RDW 14.5 12.0 - 15.0 % 12/06/2024 12:17 PM [facility] PLT 272 150 - 400 10*3/??L 12/06/2024 12:17 PM [facility] MPV 7.5 7.0 - 14.0 fL 12/06/2024 12:17 PM [facility] Neut % 71.3 45.0 - 85.0 % 12/06/2024 12:17 PM [facility] Lymph % 17.5 15.0 - 45.0 % 12/06/2024 12:17 PM [facility] Pickett % 5.7 0.0 - 12.0 % 12/06/2024 12:17 PM [facility] Eos % 4.9 0.0 - 7.0 % 12/06/2024 12:17 PM [facility] Baso % 0.6 0.0 - 3.0 % 12/06/2024 12:17 PM [facility] NRBC% 0 0 /100 WBC /100 WBC 12/06/2024 12:17 PM [facility] Neut # 4.5 2.2 - 9.5 10*3/??L 12/06/2024 12:17 PM [facility] Lym # 1.1 0.7 - 5.0 10*3/??L 12/06/2024 12:17 PM EST [facility] Pickett # 0.4 0.0 - 1.3 10*3/??L 12/06/2024 12:17 PM EST [facility] Eos # 0.3 0.0 - 0.4 10*3/??L 12/06/2024 12:17 PM EST [facility] Baso # 0.0 0.0 - 0.3 10*3/??L 12/06/2024 12:17 PM EST [facility] Blood Structure of part of right upper limb / Unknown Venipuncture / Unknown 12/06/2024 11:23 AM EST 12/06/2024 12:08 PM EST us Franko Mohan GENERAL ASSEMBLER LAB BLOOD ORDERABLES Final R esult Performing Organization Address City/[facility] Co de Phone Number [address] [phone] * Phosphorus (12/04/2024 5:35 AM EST) Phosphorus 3.6 2.4 - 5.1 mg/dL 12/04/2024 7:23 AM EST [facility] Blood Venipuncture / Unknown 12/04/2024 5:35 AM EST 12/04/2024 6:52 AM EST us Franko Mohan GENERAL ASSEMBLER LAB BLOOD ORDERABLES Final R esult Performing Organization Address City/State/[facility] Co de Phone Number [address] [phone] * Magnesium (12/04/2024 5:35 AM EST) Magnesium 1.8 1.6 - 2.6 mg/dL 12/04/2024 7:23 AM EST [facility] Blood Venipuncture / Unknown 12/04/2024 5:35 AM EST 12/04/2024 6:52 AM EST us Franko Mohan NP LAB BLOOD ORDERABLES Final R esult [facility] [address] [place] [address] * (ABNORMAL) Comprehensive metabolic panel (12/04/2024 5:35 AM EST) Sodium 141 136 - 145 mEq/L 12/04/2024 7:29 AM [facility] Potassium 3.3(L) 3.5 - 5.1 mEq/L 12/04/2024 7:29 AM [facility] Chloride 104 98 - 109 mEq/L 12/04/2024 7:29 AM [facility] CO2 30 20 - 31 mEq/L 12/04/2024 7:29 AM [facility] Anion Gap 7 4 - 15 mEq/L 12/04/2024 7:29 AM [facility] Glucose 95 70 - 100 mg/dL 12/04/2024 7:29 AM [facility] Creatinine 0.77 0.60 - 1.10 mg/dL 12/04/2024 7:29 AM [facility] eGFR (Male) >60 60 - 115 mL/min 12/04/2024 7:29 AM [facility] BUN 17 9 - 23 mg/dL 12/04/2024 7:29 AM [facility] Calcium 9.2 8.3 - 10.6 mg/dL 12/04/2024 7:29 AM [facility] Total Protein 6.2 5.7 - 8.2 g/dL 12/04/2024 7:29 AM [facility] Albumin 4.0 3.2 - 4.8 g/dL 12/04/2024 7:29 AM [facility] A/G Ratio 1.8 1.0 - 2.3 12/04/2024 7:29 AM [facility] Total Bilirubin 0.2 0.2 - 1.0 mg/dL 12/04/2024 7:29 AM [facility] AST 43(H) 13 - 40 U/L 12/04/2024 7:29 AM [facility] Alkaline Phosphatase 52 46 - 116 IU/L 12/04/2024 7:29 AM [facility] ALT 59(H) 7 - 40 U/L 12/04/2024 7:29 AM [facility] Blood Venipuncture / Unknown 12/04/2024 5:35 AM EST 12/04/2024 6:52 AM EST [facility] - 12/04/2024 7:29 AM EST The calcium reference range has been changed as of 09/18/2024. us Franko Mohan NP LAB BLOOD ORDERABLES Final R esult [facility] [address] [place] [address] * (ABNORMAL) CBC and Auto Differential (12/04/2024 5:35 AM EST) WBC 8.5 4.8 - 11.2 10*3/??L 12/04/2024 7:03 AM [facility] RBC 4.09 4.00 - 5.90 10*6/??L 12/04/2024 7:03 AM [facility] HGB 11.6(L) 14.0 - 17.2 g/dL 12/04/2024 7:03 AM [facility] HCT 35.0(L) 40.0 - 52.0 % 12/04/2024 7:03 AM [facility] MCV 85.5 82.0 - 98.0 fL 12/04/2024 7:03 AM [facility] MCH 28.3 27.0 - 35.0 pg 12/04/2024 7:03 AM [facility] MCHC 33.1 32.0 - 37.0 g/dL 12/04/2024 7:03 AM [facility] RDW 14.6 12.0 - 15.0 % 12/04/2024 7:03 AM [facility] PLT 197 150 - 400 10*3/??L 12/04/2024 7:03 AM [facility] MPV 8.0 7.0 - 14.0 fL 12/04/2024 7:03 AM [facility] Neut % 63.6 45.0 - 85.0 % 12/04/2024 7:03 AM [facility] Lymph % 30.8 15.0 - 45.0 % 12/04/2024 7:03 AM [facility] Pickett % 5.1 0.0 - 12.0 % 12/04/2024 7:03 AM [facility] Eos % 0.3 0.0 - 7.0 % 12/04/2024 7:03 AM [facility] Baso % 0.2 0.0 - 3.0 % 12/04/2024 7:03 AM [facility] NRBC% 0 0 /100 WBC /100 WBC 12/04/2024 7:03 AM [facility] Neut # 5.4 2.2 - 9.5 10*3/??L 12/04/2024 7:03 AM [facility] Lym # 2.6 0.7 - 5.0 10*3/??L 12/04/2024 7:03 AM [facility] Pickett # 0.4 0.0 - 1.3 10*3/??L 12/04/2024 7:03 AM [facility] Eos # 0.0 0.0 - 0.4 10*3/??L 12/04/2024 7:03 AM [facility] Baso # 0.0 0.0 - 0.3 10*3/??L 12/04/2024 7:03 AM [facility] Blood Venipuncture / Unknown 12/04/2024 5:35 AM EST 12/04/2024 6:51 AM EST us Franko Mohan GENERAL ASSEMBLER LAB BLOOD ORDERABLES Final R esult [facility] [address] [place] [phone] * EKG electrocardiogram (12/03/2024 7:49 AM EST) 12/03/2024 7:49 AM EST Gerber Smith DO - 12/03/2024 4:55 PM EST Study Site: ?? [facility] ? Department: ?? [email or web address] ? Room: ? S-455 ? Test Date: ?2024-12-03 07:49:19 ? Referred By: ??ADEEL DOUGLAS ? Confirmed By: Gerber Lopes, DO ? Measurements Intervals ?Burt ? Rate: ? 53 ? P: ?40 SD: ? 202 ?QRS: ?89 QRSD: ? 98 ? T: ?15 QT: ? 446 ? QTc: ?418 ? Interpretive Statements Sinus bradycardia with marked sinus arrhythmia No previous ECG available for comparison Electronically Signed On 12-03-2024 16:55:07 EST by Gerber Lopes DO Procedure Note Gerber Lopes DO - 12/03/2024 Study Site: [facility] Department: [place] [address] Room: [facility] Test Date: 2024-12-03 07:49:19 Referred By: ADEEL DOUGLAS Confirmed By: Gerber Lopes DO Measurements Intervals Burt Rate: 53 P: 40 SD: 202 QRS: 89 QRSD: 98 T: 15 [...] EST 12/03/2024 6:50 AM EST Franko Mohan GENERAL ASSEMBLER LAB BLOOD ORDERABLES Final R esult Performing Organization Address City/[facility]/ZIP Co de Phone Number [facility] [address] [place] [address] * Magnesium (12/03/2024 5:37 AM EST) Magnesium 2.0 1.6 - 2.6 mg/dL 12/03/2024 7:41 AM EST [facility] Blood Venipuncture / Unknown 12/03/2024 5:37 AM EST 12/03/2024 6:50 AM EST Franko Mohan GENERAL ASSEMBLER LAB BLOOD ORDERABLES Final R esult Performing Organization Address [facility] Co de Phone Number [facility] [address] [place] [phone] * (ABNORMAL) Comprehensive metabolic panel (12/03/2024 5:37 AM EST) Pathologist [facility] Sodium 140 136 - 145 mEq/L 12/03/2024 7:43 AM [facility] Potassium 3.9 3.5 - 5.1 mEq/L 12/03/2024 7:43 AM [facility] Chloride 104 98 - 109 mEq/L 12/03/2024 7:43 AM [facility] CO2 28 20 - 31 mEq/L 12/03/2024 7:43 AM [facility] Anion Gap 8 4 - 15 mEq/L 12/03/2024 7:43 AM [facility] Glucose 97 70 - 100 mg/dL 12/03/2024 7:43 AM [facility] Creatinine 0.83 0.60 - 1.10 mg/dL 12/03/2024 7:43 AM [facility] eGFR (Male) >60 60 - 115 mL/min 12/03/2024 7:43 AM EST [facility] BUN 19 9 - 23 mg/dL 12/03/2024 7:43 AM [facility] Calcium 9.5 8.3 - 10.6 mg/dL 12/03/2024 7:43 AM [facility] Total Protein 6.2 5.7 - 8.2 g/dL 12/03/2024 7:43 AM [facility] Albumin 4.1 3.2 - 4.8 g/dL 12/03/2024 7:43 AM [facility] A/G Ratio 2.0 1.0 - 2.3 12/03/2024 7:43 AM [facility] Total Bilirubin 0.2 0.2 - 1.0 mg/dL 12/03/2024 7:43 AM EST [facility] AST 27 13 - 40 U/L 12/03/2024 7:43 AM [facility] Alkaline Phosphatase 45(L) 46 - 116 IU/L 12/03/2024 7:43 AM [facility] ALT 37 7 - 40 U/L 12/03/2024 7:43 AM [facility] Blood Venipuncture / Unknown 12/03/2024 5:37 AM EST 12/03/2024 6:50 AM EST [facility] - 12/03/2024 7:43 AM EST The calcium reference range has been changed as of 09/18/2024. Franko Mohan NP LAB BLOOD ORDERABLES Final R esult [facility] [address] [place] [address] * (ABNORMAL) CBC and Auto Differential (12/03/2024 5:37 AM EST) WBC 11.1 4.8 - 11.2 10*3/??L 12/03/2024 7:27 AM [facility] RBC 4.13 4.00 - 5.90 10*6/??L 12/03/2024 7:27 AM [facility] HGB 11.8(L) 14.0 - 17.2 g/dL 12/03/2024 7:27 AM [facility] HCT 35.6(L) 40.0 - 52.0 % 12/03/2024 7:27 AM [facility] MCV 86.3 82.0 - 98.0 fL 12/03/2024 7:27 AM [facility] MCH 28.7 27.0 - 35.0 pg 12/03/2024 7:27 AM [facility] MCHC 33.2 32.0 - 37.0 g/dL 12/03/2024 7:27 AM [facility] RDW 14.8 12.0 - 15.0 % 12/03/2024 7:27 AM [facility] PLT 227 150 - 400 10*3/??L 12/03/2024 7:27 AM [facility] MPV 8.2 7.0 - 14.0 fL 12/03/2024 7:27 AM [facility] Neut % 69.5 45.0 - 85.0 % 12/03/2024 7:27 AM [facility] Lymph % 24.3 15.0 - 45.0 % 12/03/2024 7:27 AM [facility] Pickett % 6.0 0.0 - 12.0 % 12/03/2024 7:27 AM [facility] Eos % 0.1 0.0 - 7.0 % 12/03/2024 7:27 AM [facility] Baso % 0.1 0.0 - 3.0 % 12/03/2024 7:27 AM [facility] NRBC% 0 0 /100 WBC /100 WBC 12/03/2024 7:27 AM [facility] Neut # 7.7 2.2 - 9.5 10*3/??L 12/03/2024 7:27 AM [facility] Lym # 2.7 0.7 - 5.0 10*3/??L 12/03/2024 7:27 AM [facility] Pickett # 0.7 0.0 - 1.3 10*3/??L 12/03/2024 7:27 AM [facility] Eos # 0.0 0.0 - 0.4 10*3/??L 12/03/2024 7:27 AM EST [facility] Baso # 0.0 0.0 - 0.3 10*3/??L 12/03/2024 7:27 AM EST [facility] Blood Venipuncture / Unknown 12/03/2024 5:37 AM EST 12/03/2024 6:50 AM EST Franko Mohan NP LAB BLOOD ORDERABLES Final R esult [facility] [address] [place] [address] * X-ray chest 1 view portable (12/02/2024 [...] There is no consolidating airspace disease. RS: [id number] Procedure Note Michael Inman MD - 12/03/2024 [...] field. There is no consolidatingairspace disease. RS: [id number] Franko R. Mohan GENERAL ASSEMBLER IMG DIAGNOSTIC IMAGING ORDER BLAYNE Final Result * (ABNORMAL) Blood gas, arterial (12/02/2024 6:17 AM EST) pH, Arterial 7.38 7.35 - 7.45 12/02/2024 6:[address] [facility] pCO2, Arterial 49(H) 35 - 45 mmHg 12/02/2024 6:23 AM EST [facility] pO2, Arterial 107(H) 80 - 100 mmHg 12/02/2024 6:[address] [facility] HCO3, Arterial 29.0(H) 22.0 - 26.0 mmol/L 12/02/2024 6:23 AM EST [facility] Base Excess, Arterial 3.0(H) -3.3 - 2.3 mmol/L 12/02/2024 6:23 AM EST [facility] O2 Sat. Arterial 98.0(H) 85.0 - 97.0 % 12/02/2024 6:23 AM EST [facility] Vent Mode AC 12/02/2024 6:23 AM EST [facility] Tidal Volume 500 mL 12/02/2024 6:23 AM EST [facility] Rate-Set 14 RPM 12/02/2024 6:23 AM EST [facility] FIO2 30 % 12/02/2024 6:23 AM EST [facility] PEEP 5.0 cm/H2O 12/02/2024 6:23 AM EST [facility] Equipment Type Ventilator 12/02/2024 6:23 AM EST [facility] Puncture Site RB 12/02/2024 6:23 AM EST . [facility] Drawn By af 12/02/2024 6:23 AM EST [facility] Blood, Arterial 12/02/2024 6 :17 AM EST 12/02/2024 4:23 AM EST us Franko Mohan GENERAL ASSEMBLER LAB BLOOD ORDERABLES Final R esult [facility] [address] [place] [address] * Phosphorus (12/02/2024 5:20 AM EST) Pathologist [facility] Phosphorus 3.3 2.4 - 5.1 mg/dL 12/02/2024 7:53 AM EST [facility] Blood Venipuncture / Unknown 12/02/2024 5:20 AM EST 12/02/2024 7:01 AM EST Franko Mohan GENERAL ASSEMBLER LAB BLOOD ORDERABLES Final R esult Performing Organization Address [facility] Co de Phone Number [facility] [address] [place] [phone] * Magnesium (12/02/2024 5:20 AM EST) Pathologist [facility] Magnesium 1.9 1.6 - 2.6 mg/dL 12/02/2024 7:52 AM EST [facility] Blood Venipuncture / Unknown 12/02/2024 5:20 AM EST 12/02/2024 7:01 AM EST Franko Mohan GENERAL ASSEMBLER LAB BLOOD ORDERABLES Final R [facility] Performing Organization Address [facility] de Phone Number [facility] [address] [place] [phone] * (ABNORMAL) Comprehensive metabolic panel (12/02/2024 5:20 AM EST) Pathologist [facility] Sodium 140 136 - 145 mEq/L 12/02/2024 7:52 AM EST [facility] Potassium 4.2 3.5 - 5.1 mEq/L 12/02/2024 7:52 AM EST [facility] Chloride 104 98 - 109 mEq/L 12/02/2024 7:52 AM EST [facility] CO2 28 20 - 31 mEq/L 12/02/2024 7:52 AM EST [facility] Anion Gap 8 4 - 15 mEq/L 12/02/2024 7:52 AM EST [facility] Glucose 122(H) 70 - 100 mg/dL 12/02/2024 7:52 AM [facility] Creatinine 0.78 0.60 - 1.10 mg/dL 12/02/2024 7:52 AM [facility] eGFR (Male) >60 60 - 115 mL/min 12/02/2024 7:52 AM [facility] BUN 12 9 - 23 mg/dL 12/02/2024 7:52 AM [facility] Calcium 8.9 8.3 - 10.6 mg/dL 12/02/2024 7:52 AM [facility] Total Protein 5.8 5.7 - 8.2 g/dL 12/02/2024 7:52 AM [facility] Albumin 3.8 3.2 - 4.8 g/dL 12/02/2024 7:52 AM [facility] A/G Ratio 1.9 1.0 - 2.3 12/02/2024 7:52 AM [facility] Total Bilirubin 0.3 0.2 - 1.0 mg/dL 12/02/2024 7:52 AM [facility] AST 21 13 - 40 U/L 12/02/2024 7:52 AM [facility] Alkaline Phosphatase 43(L) 46 - 116 IU/L 12/02/2024 7:52 AM [facility] ALT 25 7 - 40 U/L 12/02/2024 7:52 AM [facility] Blood Venipuncture / Unknown 12/02/2024 5:20 AM EST 12/02/2024 7:01 AM EST [facility] - 12/02/2024 7:52 AM EST The calcium reference range has been changed as of 09/18/2024. us Franko Mohan NP LAB BLOOD ORDERABLES Final R esult [facility] [address] [place] [address] * (ABNORMAL) CBC and Auto Differential (12/02/2024 5:20 AM EST) WBC 8.4 4.8 - 11.2 10*3/??L 12/02/2024 7:32 AM [facility] RBC 4.02 4.00 - 5.90 10*6/??L 12/02/2024 7:32 AM [facility] HGB 11.7(L) 14.0 - 17.2 g/dL 12/02/2024 7:32 AM [facility] HCT 34.9(L) 40.0 - 52.0 % 12/02/2024 7:32 AM [facility] MCV 86.8 82.0 - 98.0 fL 12/02/2024 7:32 AM [facility] MCH 29.1 27.0 - 35.0 pg 12/02/2024 7:32 AM [facility] MCHC 33.5 32.0 - 37.0 g/dL 12/02/2024 7:32 AM [facility] RDW 14.5 12.0 - 15.0 % 12/02/2024 7:32 AM [facility] PLT 206 150 - 400 10*3/??L 12/02/2024 7:32 AM [facility] MPV 8.2 7.0 - 14.0 fL 12/02/2024 7:32 AM [facility] Neut % 74.6 45.0 - 85.0 % 12/02/2024 7:32 AM [facility] Lymph % 19.0 15.0 - 45.0 % 12/02/2024 7:32 AM [facility] [place] % 6.3 0.0 - 12.0 % 12/02/2024 7:32 AM [facility] Eos % 0.0 0.0 - 7.0 % 12/02/2024 7:32 AM [facility] Baso % 0.1 0.0 - 3.0 % 12/02/2024 7:32 AM [facility] NRBC% 0 0 /100 WBC /100 WBC 12/02/2024 7:32 AM [facility] Neut # 6.3 2.2 - 9.5 10*3/??L 12/02/2024 7:32 AM EST [facility] Lym # 1.6 0.7 - 5.0 10*3/??L 12/02/2024 7:32 AM EST [facility] Pickett # 0.5 0.0 - 1.3 10*3/??L 12/02/2024 7:32 AM EST [facility] Eos # 0.0 0.0 - 0.4 10*3/??L 12/02/2024 7:32 AM EST [facility] Baso # 0.0 0.0 - 0.3 10*3/??L 12/02/2024 7:32 AM EST [facility] Blood Venipuncture / Unknown 12/02/2024 5:20 AM EST 12/02/2024 7:02 AM EST us Franko Mohan NP LAB BLOOD ORDERABLES Final R esult Performing Organization Address City/[facility] Co de Phone Number [facility] [address] [place] [phone] * Triglycerides (12/02/2024 5:20 AM EST) Triglycerides 137 <150 mg/dL 12/02/2024 7:52 AM EST [facility] Blood Venipuncture / Unknown 12/02/2024 5:20 AM EST 12/02/2024 7:01 AM EST us Adeel Douglas MD LAB BLOOD ORDERABLES Final Resul t Performing Organization Address [facility] Co de Phone Number [facility] [address] [place] [phone] * X-ray abdomen 1 view portable (12/01/2024 [...] calcifications or acute osseous abnormality detected. RS: [id number] Narrative 12/01/2024 1:22 PM EST HISTORY: Orogastric [...] pathologic calcifications or acuteosseous abnormality detected. RS: [id number] Franko Mohan NP IMG DIAGNOSTIC IMAGING ORDER BLAYNE Final Result * (ABNORMAL) Blood gas, arterial (12/01/2024 8:36 AM EST) pH, Arterial 7.33(L) 7.35 - 7.45 12/01/2024 8:[address] [facility] pCO2, Arterial 46(H) 35 - 45 mmHg 12/01/2024 8:[address] [facility] pO2, Arterial 120(H) 80 - 100 mmHg 12/01/2024 8:[address] [facility] HCO3, Arterial 24.3 22.0 - 26.0 mmol/L 12/01/2024 8:[address] [facility] Base Excess, Arterial -1.9 -3.3 - 2.3 mmol/L 12/01/2024 8:[address] [facility] O2 Sat. Arterial 98.4(H) 85.0 - 97.0 % 12/01/2024 8:[address] [facility] Vent Mode AC/VC+ 12/01/2024 8:[address] [facility] Tidal Volume 550 mL 12/01/2024 8:[address] [facility] Rate-Set 12 RPM 12/01/2024 8:42 AM EST [facility] FIO2 30 % 12/01/2024 8:42 AM EST [facility] PEEP 5.0 cm/H2O 12/01/2024 8:42 AM EST [facility] Equipment Type Ventilator 12/01/2024 8:42 AM EST [facility] Puncture Site RR 12/01/2024 8:42 AM EST [facility] Drawn By TA 12/01/2024 8:42 AM EST [facility] [employer] Test Adequate 12/01/2024 8:42 AM EST [facility] Blood, Arterial Arterial Punctur e / Unknown 12/01/2024 8:36 AM EST 12/01/2024 8:32 AM EST us Franko Mohan [employer] LAB BLOOD ORDERABLES Final R esult [facility] [address] [place] [address] * (ABNORMAL) Manual Differential (12/01/2024 4:44 AM EST) WBC 10.4 10*3/??L 12/01/2024 5:08 AM [facility] Neut % 95(H) 40 - 85 % 12/01/2024 5:08 AM [facility] Lymph % 5(L) 15 - 45 % 12/01/2024 5:08 AM [facility] Total Cells Count 100 025 5:08 AM [facility] Platelet Estimate Normal Normal 025 5:08 AM [facility] Anisocytosis Slight None-Sligh t 12/01/2024 5:08 AM [facility] Poikilocytosis Slight None-Sligh t 12/01/2024 5:08 AM [facility] Toxic Granulation Slight(A) None Seen 025 5:08 AM [facility] Blood Venipuncture / Unknown 12/01/2024 4:44 AM EST 12/01/2024 4:47 AM EST us Adeel Douglas MD LAB BLOOD ORDERABLES Final Resul t [facility] [address] [place] [address] * (ABNORMAL) CBC and Auto Differential (12/01/2024 4:44 AM EST) WBC 10.4 4.8 - 11.2 10*3/??L 12/01/2024 4:51 AM EST [facility] RBC 4.34 4.00 - 5.90 10*6/??L 12/01/2024 4:51 AM [facility] HGB 12.5(L) 14.0 - 17.2 g/dL 12/01/2024 4:51 AM [facility] HCT 37.5(L) 40.0 - 52.0 % 12/01/2024 4:51 AM [facility] MCV 86.5 82.0 - 98.0 fL 12/01/2024 4:51 AM [facility] MCH 28.9 27.0 - 35.0 pg 12/01/2024 4:51 AM [facility] MCHC 33.4 32.0 - 37.0 g/dL 12/01/2024 4:51 AM [facility] RDW 14.6 12.0 - 15.0 % 12/01/2024 4:51 AM [facility] PLT 242 150 - 400 10*3/??L 12/01/2024 4:51 AM [facility] MPV 7.2 7.0 - 14.0 fL 12/01/2024 4:51 AM [facility] NRBC% 0 0 /100 WBC /100 WBC 12/01/2024 4:51 AM [facility] Add Manual Diff Yes Per Protocol 12/01/2024 4:51 AM [facility] Blood Venipuncture / Unknown 12/01/2024 4:44 AM EST 12/01/2024 4:47 AM EST us Adeel Douglas MD LAB BLOOD ORDERABLES Final Resul t Performing Organization Address [facility] Phone Number [facility] [address] [place] [phone] * Magnesium (12/01/2024 4:44 AM EST) Magnesium 1.8 1.6 - 2.6 mg/dL 12/01/2024 5:09 AM EST [facility] Blood Venipuncture / Unknown 12/01/2024 4:44 AM EST 12/01/2024 4:47 AM EST us Adeel Douglas MD LAB BLOOD ORDERABLES Final Resul t Performing Organization Address [facility] Phone Number [facility] [address] [place] [phone] * Phosphorus (12/01/2024 4:44 AM EST) Phosphorus 2.4 2.4 - 5.1 mg/dL 12/01/2024 5:17 AM EST [facility] Blood Venipuncture / Unknown 12/01/2024 4:44 AM EST 12/01/2024 4:47 AM EST us Adeel Douglas MD LAB BLOOD ORDERABLES Final Resul t Performing Organization Address [facility] Phone Number [facility] [address] [place] [phone] * (ABNORMAL) Basic metabolic panel (12/01/2024 4:44 AM EST) Sodium 144 136 - 145 mEq/L 12/01/2024 5:09 AM EST [facility] Potassium 4.0 3.5 - 5.1 mEq/L 12/01/2024 5:09 AM EST [facility] Chloride 113(H) 98 - 109 mEq/L 12/01/2024 5:09 AM EST [facility] CO2 22 20 - 31 mEq/L 12/01/2024 5:09 AM EST [facility] Anion Gap 9 4 - 15 mEq/L 12/01/2024 5:09 AM EST [facility] Glucose 112(H) 70 - 100 mg/dL 12/01/2024 5:09 AM EST [facility] Creatinine 0.94 0.60 - 1.10 mg/dL 12/01/2024 5:09 AM EST [facility] eGFR (Male) >60 60 - 115 [...] ORDERABLES Final Resul t Performing Organization Address City/[facility]/ZIP Co de Phone Number [address] [phone] * (ABNORMAL) Triglycerides Level (serum) as baseline (12/01/2024 4:44 AM EST) Triglycerides 518(H) <150 mg/dL 12/01/2024 5:09 AM EST [facility] Blood Venipuncture / Unknown 12/01/2024 4:44 AM EST 12/01/2024 4:47 AM EST us Adeel Douglas MD LAB BLOOD ORDERABLES Final Resul t Performing Organization Address [facility] Co de Phone Number [facility] [address] [place] [phone] * X-ray chest 1 view portable (12/01/2024 [...] midline. There is no pneumothorax identified. RS: [id number] Procedure Note Michael Inman MD - 12/01/2024 [...] themidline. There is no pneumothorax identified. RS: [id number] Adeel Douglas MD IMG DIAGNOSTIC IMAGING ORDERABLE [...] for repair of a tracheal injury. RS: [id number] Narrative 12/01/2024 9:04 AM EST HISTORY: Neck [...] for repair of a tracheal injury. RS: [id number] us Adeel Douglas MD [facility] ORDER[place]LES Final Result * X-ray chest [...] soft tissues: No acute abnormality. RS: [id number] us Adeel SHOOK DIAGNOSTIC IMAGING ORDERABLE S Final Result * Type and Screen (11/30/2024 10:59 PM EST) ABO A 12/01/2024 12:18 AM EST [facility] RH Negative 12/01/2024 12:18 AM EST [facility] Antibody Screen Negative 12/01/2024 12:18 AM EST [facility] Blood Venipuncture / Unknown 11/30/2024 10:59 PM EST 11/30/2024 11:05 PM EST us Adeel Douglas MD BLOOD BANK TEST ORDERABLES Final Result Performing Organization Address [facility] de Phone Number [facility] Blood Bank [address] [place] [address] * (ABNORMAL) blood alcohol (11/30/2024 10:59 PM EST) Ethanol Lvl 149(H) <10 mg/dL 11/30/2024 11:29 PM EST [facility] Blood Structure of right ureter / Unknown Venipuncture / Unknown 11/30/2024 10:59 PM EST 11/30/2024 11:05 PM EST us Adeel Douglas MD LAB BLOOD ORDERABLES Final Resul t Performing Organization Address [facility] Phone Number [facility] [address] [place] [phone] * APTT (11/30/2024 10:59 PM EST) APTT [...] ORDERABLES Final Resul t Performing Organization Address [facility] Co de Phone Number [facility] [address] [place] [phone] * Protime-INR (11/30/2024 10:59 PM EST) Protime [...] Resul t [facility] [address] [place] [address] * (ABNORMAL) Basic metabolic panel (11/30/2024 10:59 PM EST) Pathologist [facility] Sodium 144 136 - 145 mEq/L 11/30/2024 11:27 PM EST [facility] Potassium 3.6 3.5 - 5.1 mEq/L 11/30/2024 11:27 PM EST [facility] Chloride 111(H) 98 - 109 mEq/L 11/30/2024 11:27 PM EST [facility] CO2 24 20 - 31 mEq/L 11/30/2024 11:27 PM [facility] Anion Gap 9 4 - 15 mEq/L 11/30/2024 11:27 PM EST [facility] Glucose 118(H) 70 - 100 mg/dL 11/30/2024 11:27 PM EST [facility] Creatinine 0.98 0.60 - 1.10 mg/dL 11/30/2024 11:27 PM EST [facility] eGFR (Male) >60 60 - 115 mL/min 11/30/2024 11:27 PM EST [facility] BUN 10 9 - 23 mg/dL 11/30/2024 11:27 PM EST [facility] Calcium 9.1 8.3 - 10.6 mg/dL 11/30/2024 11:27 PM EST [facility] Blood Structure of right ureter / Unknown Venipuncture / Unknown 11/30/2024 10:59 PM EST 11/30/2024 11:05 PM EST [facility] - 11/30/2024 11:27 PM EST The calcium reference range has been changed as of 09/18/2024. us Adeel Douglas MD LAB BLOOD ORDERABLES Final Resul t [facility] [address] [place] [phone] * (ABNORMAL) CBC and Auto Differential (11/30/2024 10:59 PM EST) WBC 7.3 4.8 - 11.2 10*3/??L 11/30/2024 11:10 PM EST [facility] RBC 4.52 4.00 - 5.90 10*6/??L 11/30/2024 11:10 PM [facility] HGB 13.2(L) 14.0 - 17.2 g/dL 11/30/2024 11:10 PM EST [facility] HCT 39.1(L) 40.0 - 52.0 % 11/30/2024 11:10 PM EST [facility] MCV 86.5 82.0 - 98.0 fL 11/30/2024 11:10 PM EST [facility] MCH 29.3 27.0 - 35.0 pg 11/30/2024 11:10 PM EST [facility] MCHC 33.9 32.0 - 37.0 g/dL 11/30/2024 11:10 PM [facility] RDW 14.6 12.0 - 15.0 % 11/30/2024 11:10 PM [facility] PLT 275 150 - 400 10*3/??L 11/30/2024 11:10 PM [facility] MPV 7.4 7.0 - 14.0 fL 11/30/2024 11:10 PM [facility] Neut % 52.0 45.0 - 85.0 % 11/30/2024 11:10 PM [facility] Lymph % 40.0 15.0 - 45.0 % 11/30/2024 11:10 PM [facility] Pickett % 4.8 0.0 - 12.0 % 11/30/2024 11:10 PM [facility] Eos % 2.6 0.0 - 7.0 % 11/30/2024 11:10 PM [facility] Baso % 0.6 0.0 - 3.0 % 11/30/2024 11:10 PM [facility] NRBC% 0 0 /100 WBC /100 WBC 11/30/2024 11:10 PM [facility] Neut # 3.8 2.2 - 9.5 10*3/??L 11/30/2024 11:10 PM [facility] Lym # 2.9 0.7 - 5.0 10*3/??L 11/30/2024 11:10 PM [facility] Pickett # 0.4 0.0 - 1.3 10*3/??L 11/30/2024 11:10 PM [facility] Eos # 0.2 0.0 - 0.4 10*3/??L 11/30/2024 11:10 PM [facility] Baso # 0.0 0.0 - 0.3 10*3/??L 11/30/2024 11:10 PM [facility] Blood Venipuncture / Unknown 11/30/2024 10:59 PM EST 11/30/2024 11:06 PM EST us Adeel Douglas MD LAB BLOOD ORDERABLES Final Resul t [facility] [address] [place] [address] documented in this encounter Visit Diagnoses Diagnosis Perforation of the trachea- Primary Open neck wound Obesity (BMI 30.0-34.9) documented in this encounter Admitting Diagnoses Diagnosis Perforation of the trachea documented in this encounter Administered Medications Inactive Administered Medications - up to 3 most recent administrations Medication Order MAR Action Action Date Dose Rate Site acetaminophen (TYLENOL EXTRA STRENGTH) tablet 1,000 mg 1,000 mg, Oral, Every 8 hours, First dose on 12/01/24 at 0600, Adult MAX: NOT to exceed 4 grams of ACETAMINOPHEN per 24 hrs from ALL sources. Given 12/03/2024 5:58 AM EST 1,000 mg Given 12/02/2024 9:17 PM EST 1,000 mg Given 12/02/2024 2:11 PM EST 1,000 mg acetaminophen (TYLENOL) tablet 650 mg 650 mg, [...] bedtime, First dose (after last reorder) on Tue12/06/24 at 2100 Given 12/06/2024 9:14 PM EST 5 mg busPIRone (BUSPAR) tablet 10 mg 10 mg, Oral, 3 times daily, First dose (after last reorder) on Talya 12/06/24 at 1300 Given 12/07/2024 12:37 PM EST 10 mg Given 12/07/2024 9:15 AM EST 10 mg Given 12/06/2024 9:15 PM EST 10 mg celecoxib (CeleBREX) capsule 100 mg 100 mg, Oral, 2 times daily, First dose on 12/01/24 at 0900, Look-alike / Sound-alike Medication Given 12/02/2024 9:17 PM EST 100 mg Given 12/02/2024 8:36 AM EST 100 mg Given 12/01/2024 9:29 PM EST 100 mg chlorhexidine gluconate 0.12 % (PERIDEX) oral rinse solution 15 mL 15 mL, Mouth/Throat, Every 12 hours scheduled, First dose on 12/01/24 at 0800, Use every 12 hours correlating with the every 4 hour mouth care. To adjust times (if needed) - send Pharmacy a MAR Message. BKC (Black) Waste Code- Use BLACK WASTE container Given 12/02/2024 8:06 PM EST 15 mL Given 12/02/2024 8:35 AM EST 15 mL Given 12/01/2024 8:05 PM EST 15 mL chlorhexidine gluconate topical 1 Application 1 Application, Topical, Every 24 hours, First dose on 12/01/24 at 2200, For 5 days, -Scrub full body (do not apply above jawline) daily for 5 (five) days. For patients with invasive lines and/or devices, obtain a new order to continue with CHG beyond 5 (five) days of initial treatment; may discontinue the order upon their removal. -Chlorhexidine gluconate (CHG) product selection is based on unit supply. *FOR TOPICAL USE* Given 12/05/2024 10:05 PM EST 1 Application Given 12/02/2024 9:17 PM EST 1 Application Given 12/01/2024 9:29 PM EST 1 Application dexAMETHasone (DECADRON) injection 10 mg 10 mg, Intravenous, Every 24 hours scheduled, First dose on 12/01/24 at 0900, For 3 days, Look-alike / Sound-alike Medication IV doses above 10 mg should be mixed in 50 mL of NS or D5W and given over 10-20 minutes. Given 12/03/2024 8:29 AM EST 10 m g Given 12/02/2024 8:35 AM EST 10 mg Given 12/01/2024 9:44 AM EST 10 mg enoxaparin (LOVENOX) injection prefilled [...] AM EST 40 mg Ab dominal Tissue fentaNYL (SUBLIMAZE) bolus from infusion bag 100 mcg 100 mcg, Intravenous, Every 30 min PRN, per PAD Fentanyl Infusion Adjustment Table, Starting on 12/01/24 at 0836, Concentration 10 mcg/mL. Bolus from infusion bag via Smart pump. Bolus from Bag 12/02/2024 10:30 PM EST 100 mcg Bolus from Bag 12/02/2024 10:05 PM EST 100 mcg Bolus from Bag 12/02/2024 8:37 AM EST 100 mcg fentaNYL 10 mcg/mL 2500 mcg in 250 mL infusion - ADS Override Pull Starting on 12/01/24 at 0252, For 1 dose, Marlin Mckinney: cabinet override fentaNYL 2500 mcg in 250 mL infusion 0-200 mcg/hr (0-20 mL/hr), Intravenous, Titrated, Starting on 12/01/24 at 0252, Start infusion at 50 mcg/hour. Titrate every 30 minutes according to adjustment table below to a CPOT score of 2 or less. Notify Provider if infusion rate reaches 300 mcg/hour. Rate is NOT to exceed 500 mcg/hour. Notify Provider if unable to follow order as written. - Assess CPOT pain score every 30 minutes. - CPOT score of 0 to 2: If CPOT pain score is 0 to 2 for two consecutive hours, decrease Fentanyl Infusion by 12.5 mcg/hour. - CPOT score of 3 to 8: Fentanyl 25 mcg IV bolus and increase infusion by 25 mcg/hour. - Once infusion is weaned to off, return to intermittent bolus dosing orders. Weaning: Decrease rate by 20% to 40% initially, then taper according to patient response. Rate/Dose Change 12/01/2024 9:16 AM EST 200 mcg/hr 20 mL/hr Rate/Dose Verify 12/01/2024 8:00 AM EST 100 mcg/hr 10 mL/h r Rate/Dose Verify 12/01/2024 7:00 AM EST 100 mcg/hr 10 mL/h r fentaNYL 2500 mcg in 250 mL infusion 0-150 mcg/hr (0-15 mL/hr), Intravenous, Continuous, Starting on 12/01/24 at 0930 Rate/Dose Verify 12/03/2024 7:00 AM EST 100 mcg/hr 10 mL/hr Rate/Dose Verify 12/03/2024 6:00 AM EST 100 mcg/hr 10 mL/h r Rate/Dose Verify 12/03/2024 5:00 AM EST 100 mcg/hr 10 mL/h r folic acid 1 mg in sodium chloride (NS) 0.9 % 50 mL IVPB 1 mg, Intravenous, Administer over 60 Minutes, Daily at 1200, First dose on 12/01/24 at 1200, PHARMACY MIXED IV *See PHARMACY DROP OFF LOCATION* Refrigerate New Bag 12/06/2024 11:29 AM EST 1 mg 50.2 mL/hr New Bag 12/04/2024 12:11 PM EST 1 mg 50.2 mL/hr New Bag 12/03/2024 12:49 PM EST 1 mg 50.2 mL/hr folic acid tablet 1 mg 1 mg, [...] Given 12/07/2024 9:11 AM EST 1 mg iopamidol (ISOVUE-370) 76% injection 100 mL, Intravenous, Once in imaging, contrast, Starting on Tue11/30/24 at 2311, For 1 dose Given 11/30/2024 11:12 PM EST 80 mL ketorolac (TORADOL) injection 15 mg 15 mg, Intravenous, Every 6 hours PRN, moderate pain (4-6), Starting on Tue12/05/24 at 1043, For 5 days lactated Ringer's bolus 2,000 mL 2,000 mL, Intravenous, Administer over 30 Minutes, Once, On 12/01/24 at 0930, For 1 dose New Bag 12/01/2024 9:58 AM EST 2,000 mL 4000 mL/hr lactated Ringer's infusion 100 mL/hr, Intravenous, Continuous, Starting on Tue12/01/24 at 0259 Rate/Dose Verify 12/02/2024 9:00 AM EST 100 mL/hr 100 mL/hr Rate/Dose Verify 12/02/2024 6:00 AM EST 100 mL/hr 100 mL/ hr Rate/Dose Verify 12/02/2024 5:00 AM EST 100 mL/hr 100 mL/ hr LORazepam (ATIVAN) injection 1 mg 1 mg, Intravenous, Once, On Tue12/03/24 at 1215, For 1 dose Given 12/03/2024 12:49 PM EST 1 mg LORazepam (ATIVAN) injection 2 mg 2 mg, Intravenous, Every 4 hours PRN, sedation, Starting on Tue12/01/24 at 0922 Given 12/01/2024 5:17 PM EST 2 m g LORazepam (ATIVAN) tablet 1 mg 1 mg, Oral, 3 times daily PRN, agitation, anxiety, Starting on Tue12/03/24 at 1543 Given 12/07/2024 4:18 PM EST 1 m g Given 12/07/2024 12:37 PM EST 1 mg Given 12/06/2024 5:35 PM EST 1 mg magnesium sulfate 2 g in 50 mL IVPB premix 2 g 2 g, Intravenous, Once, On Tue12/01/24 at 0845, For 1 dose New Bag 12/01/2024 9:36 AM EST 2 g magnesium sulfate 2 g in 50 mL IVPB premix 2 g 2 g, Intravenous, Once, On Tue12/04/24 at 1030, For 1 dose New Bag 12/04/2024 10:41 AM EST 2 g melatonin tablet 3 mg 3 mg, Oral, At bedtime PRN, sleep, Starting on Tue12/03/24 at 1543 Given 12/05/2024 8:06 PM EST 3 mg Given 12/04/2024 9:01 PM EST 3 mg mupirocin (BACTROBAN) 2 % ointment 1 Application 1 Application, Each Nostril, 2 times daily, First dose on Tue12/01/24 at 0900, For 5 days, Apply to nares twice daily for 5 (five) days. For patients requiring surgery, the goal is to complete a minimum of 2 (two) applications prior to surgery. *For Topical Use* Given 12/05/2024 10:05 PM EST 1 Application Given 12/04/2024 9:23 AM EST 1 Application Given 12/03/2024 8:29 AM EST 1 Application NORepinephrine STANDARD (LEVOPHED) 4 mg in sodium chloride 0.9 % 250 mL infusion premix 0-30 mcg/min (0-112.5 mL/hr), Intravenous, Titrated, Starting on 12/01/24 at 0415, Start infusion at 2 mcg/minute. Titrate by 2 mcg/minute every 5-15 minutes to maintain SBP above 90 mmHg. Notify Provider if rate exceeds 75 mcg/minute. Notify Provider if unable to follow order as written. Weaning: For rate less than 10 mcg/minute, reduce by 1 mcg/minute every 10 minutes. For rate above 10 mcg/minute, reduce rate by 2 mcg/minute every 10 minutes. Look-alike / Sound-alike Medication Concentration: 16 mcg/mL = (0.16 mg/mL) Rate/Dose Change 12/01/2024 9:01 PM EST 1 mcg/min 3.8 mL/hr Rate/Dose Verify 12/01/2024 9:00 PM EST 2 mcg/min 7.5 mL/ hr Rate/Dose Verify 12/01/2024 8:00 PM EST 2 mcg/min 7.5 mL/ hr ondansetron (ZOFRAN) injection 4 mg 4 mg, [...] 5:35 PM EST 5 mg pantoprazole (PROTONIX) 40 mg in sodium chloride (NS) 0.9 % IV push injection 40 mg, Intravenous, at 300 mL/hr, Daily, First dose on Tue12/01/24 at 0900, Dilute 40 mg vial with 10 mL of sodium chloride 0.9 % for injection and give IVP over 2 minutes. Given 12/04/2024 9:23 AM EST 40 mg 30 0 mL/hr Given 12/03/2024 8:29 AM EST 40 mg 300 mL/hr Given 12/02/2024 8:35 AM EST 40 mg 300 mL/hr pantoprazole (PROTONIX) delayed release EC tablet 40 mg 40 mg, Oral, Daily, First dose on Talya 12/06/24 at 0900, DELAYED-RELEASE TABLETS SHOULD NOT BE SPLIT, CRUSHED OR CHEWED Given 12/07/2024 9:11 AM EST 40 mg Given 12/06/2024 9:44 AM EST 40 mg PHENobarbital (LUMINAL) 994.5 mg in sodium chloride (NS) 0.9 % 100 mL IVPB 994.5 mg (rounded from 993 mg = 10 mg/kg ? 99.3 kg), Intravenous, at 215.3 mL/hr, Once, On Tue12/01/24 at 0430, For 1 dose, Pharmacy mixed IV. Do not exceed a rate of 60 mg/minute. New Bag 12/01/2024 4:30 AM EST 994.5 mg 215.3 mL/hr polyethylene glycol 3350 (MIRALAX) powder for oral solution 17 g packet 17 g 17 g, Oral, Daily, First dose on Tue12/01/24 at 0900, Stir the powder in 4-8 oz of beverage until completely dissolved. Given 12/02/2024 8:36 AM EST 17 g potassium chloride (K-DUR,KLOR-CON) extended release tablet 40 mEq 40 mEq, Oral, Once, On Tue12/04/24 at 1030, For 1 dose, DO NOT PLACE DOWN NG TUBE, USE KCL SOLUTION. MAY MAKE A SLURRY IN WATER, DISSOLVE IN 5-15 mL OF JUICE OR WATER IF PATIENT HAS DIFFICULTY SWALLOWING. Given 12/04/2024 10:41 AM EST 40 mEq prazosin (MINIPRESS) capsule 2 mg 2 mg, Oral, At bedtime, First dose on Tue12/05/24 at 2100, Hold for SBP below 100 mmHg Given 12/06/2024 9:14 PM EST 2 mg Given 12/05/2024 8:04 PM EST 2 mg propofol (DIPRIVAN) 10 MG/ML injection - ADS Override Pull Starting on 12/01/24 at 0251, For 1 dose, WillieMarlin hart: cabinet override SHAKE WELL BEFORE USE propofol (DIPRIVAN) infusion 10 mg/mL 0-30 mcg/kg/min ? 99.3 kg (0-17.874 mL/hr, rounded to 0-17.87 mL/hr), Intravenous, Titrated, Starting on 12/01/24 at 0252, Start infusion at 10 mcg/kg/minute. Increase infusion rate by 5 mcg/kg/minute every 5-15 minutes until targeted RASS sedation level as ordered by the Provider is achieved. Target RASS Sedation Level: sedation level not deeper than -3 or as ordered by Provider. Rate is NOT to exceed 30 mcg/kg/minute. Notify Provider if unable to follow order as written. MAINTENANCE: - Reduce dose after targeted RASS sedation level is achieved and adjust to response. - For SBP less than 90 mmHg, reduce infusion rate until patient's SBP is greater than 90 mmHg. - For over-sedation (RASS scale of -3, -4, or -5 OR exceeding level ordered by Provider), decrease infusion rate by 5-10 mcg/kg/minute every 5-15 minutes until targeted RASS sedation level is achieved. WEANING: Decrease infusion rate by 5-10 mcg/kg/minute every 5-15 minutes until off or desired level of sedation is achieved. Avoid abrupt discontinuation because of associated agitation. ALLERGY WARNING: Do not adminsiter if patient has allergy to Eggs, Lecithin, or Soy products Shake well before use. Strict aseptic technique must be maintained in handling propofol. Do not use if contamination is suspected. Do not administer through same IV catheter with blood or plasma. Label with patient name and Propofol 10 mg/mL. Propofol suspension and attached intravenous line are to be changed every 12 hours. Rate/Dose Verify 12/03/2024 7:00 AM EST 15 mcg/kg/min 8.9 mL/hr Rate/Dose Verify 12/03/2024 6:00 AM EST 15 mcg/kg/min 8.9 mL/hr Rate/Dose Verify 12/03/2024 5:00 AM EST 15 mcg/kg/min 8.9 mL/hr pseudoephedrine (SUDAFED) tablet 30 mg 30 mg, Oral, Every 4 hours, First dose on 12/01/24 at 1445, For 2 doses Given 12/01/2024 6:35 PM EST 30 mg Given 12/01/2024 2:56 PM EST 30 mg tamsulosin (FLOMAX) capsule 0.4 mg 0.4 [...] AM EST 0.4 mg thiamine (VITAMIN B-1) injection 200 mg 200 mg, Intravenous, Daily, First dose on 12/01/24 at 0900, IF Giving IV: Doses of 500 mg or less may be given IV push over 1 to 5 minutes. Given 12/04/2024 9:22 AM EST 200 mg Given 12/03/2024 8:28 AM EST 200 mg Given 12/02/2024 8:35 AM EST 200 mg thiamine (VITAMIN B-1) tablet 200 mg 200 mg, Oral, Daily, First dose on [facility] 12/06/24 at 0945 Given 12/07/2024 9:11 AM [...] bedtime, First dose (after last reorder) on [facility] 12/06/24 at 2100 2114 (Given - Provider: Natacha Reyes RN) busPIRone (BUSPAR) tablet 10 mg 10 mg, Oral, 3 times daily, First dose (after last reorder) on [facility] 12/06/24 at 1300 1304 (Given - Provider: Aliyah Welch RN)2115 (Given - Provider: Natacha Reyes RN) 0915 (Given - Provider: Jimenez Reid RN)1237 (Given - Provider: Jimenez Reid RN) chlorhexidine gluconate topical 1 Application () 1 Application, Topical, Every 24 hours, First dose on [facility] 12/01/24 at 2200, For 5 days, -Scrub full body (do not apply above jawline) daily for 5 (five) days. For patients with invasive lines and/or devices, obtain a new order to continue with CHG beyond 5 (five) days of initial treatment; may discontinue the order upon their removal. -Chlorhexidine gluconate (CHG) product selection is based on unit supply. *FOR TOPICAL USE* 2204 (Given - Provider: Natacha Reyes RN) cloNIDine (CATAPRES) tablet 0.1 mg 0.1 mg, Oral, Daily, First dose (after last reorder) on [facility] 12/06/24 at 1200, Hold for SBP below 100 mmHg or HR below 50 Look-alike / Sound-alike Medication 1252 (Not Given - Provider: Aliyah Welch RN - Reason: Patient/family refused) 0932 (Not Given - Provider: Jimenez Reid RN - Reason: Not Clinically Indicated) enoxaparin (LOVENOX) injection prefilled syringe 40 mg 40 mg, Subcutaneous, Every 24 hours scheduled, First dose on [facility] 12/01/24 at 0900, Pharmacy to automatically adjust [...] refused) 1129 (New Bag - Provider: Aliyah Welch RN)1230 (Stopped - Provider: Aliyah Welch RN) folic [...] Provider: Jimenez Reid RN - Reason: Patient/family refused)2205 (Given - Provider: Natacha Reyes RN) pantoprazole (PROTONIX) delayed release EC tablet 40 mg 40 mg, Oral, Daily, First dose on [facility] 12/06/24 at 0900, DELAYED-RELEASE TABLETS SHOULD NOT BE SPLIT, CRUSHED OR CHEWED 0944 (Given - Provider: Aliyah Welch RN) [...] Welch RN) 0911 (Given - Provider: Jimenez Reid, NIXON) thiamine (VITAMIN B-1) tablet 200 mg 200 mg, Oral, Daily, First dose on [facility] 12/06/24 at 0945 0944 (Given - Provider: Aliyah Welch RN) 0911 (Given - Provider: Jimenez Reid, NIXON) topiramate (TOPAMAX) tablet 25 mg 25 mg, Oral, 2 times daily, First dose (after last reorder) on [facility] 12/06/24 at 1300, Due to bitter taste it is not recommended to crush, break, or chew immediate release tablet if taken orally. 1304 (Given - Provider: Aliyah Welch RN)2113 (Given - Provider: Natacha Reyes RN) 0911 (Given - Provider: Jimenez Reid, NIXON) PRN Medication Order 12/05/2024 12/06/2024 12/07/2024 acetaminophen (TYLENOL) tablet 650 mg 650 mg, Oral, Every 4 hours PRN, mild pain (1-3), Starting on Tue12/04/24 at 2102, Adult MAX: NOT to exceed 4 grams of ACETAMINOPHEN per 24 hrs from ALL sources. 2156 (Given - Provider: Natacha Reyes RN) 161 (Given - Provider: Jimenez Reid RN) ketorolac [...] Welch RN) 1237 (Given - Provider: Jimenez Reid RN)1618 (Given - Provider: Jimenez Reid RN) melatonin tablet 3 mg 3 mg, Oral, At bedtime PRN, sleep, Starting on Tue12/03/24 at 1543 2005 (Given - Provider: Natacha Reyes RN) ondansetron (ZOFRAN) injection 4 mg 4 mg, Intravenous, Every 6 hours PRN, nausea, Starting on Tue12/01/24 at 0255 oxyCODONE (ROXICODONE) immediate release tablet 5 mg 5 mg, Oral, Every 4 hours PRN, severe pain (7-10), Starting on Tue12/05/24 at 1119, Look-alike / Sound-alike Medication 1134 (Given - Provider: Jimenez Reid RN)2005 (Given - Provider: Natacha Reyes RN) 0946 (Given - Provider: Aliyah Welch RN)173 (Given - Provider: Aliyah Welch RN)2339 (Given - Provider: Neva Salazar RN) 0911 (Given - Provider: Jimenez Reid RN) documented in this encounter Care Teams Scientific Research Manager Relationship Specialty Start [place] [address] PCP - General 12/01/24 documented as of this encounter
--- OUTSIDE RECORDS SUMMARY | 2024-12-07 19:43 | XMS_ITS | Clinical Summary ---
Author Organization [facility] Address [address] [place] [address] Care Team Providers Care Electrical Integrator Name Role Phone Pcp, No Primary Care Provider Unavailabl e Allergies No known active allergies Medications topiramate 50 MG tablet Take 0.5 tablets (25 mg total) by mouth 2 (two) times a day Active busPIRone (BUSPAR) 15 MG tablet Take 10 mg by mouth 3 (three) times a day Active ARIPiprazole 10 MG tablet Take 0.5 tablets (5 mg total) by mouth at bedtime Active prazosin (MINIPRESS) 2 MG capsule Take 1 capsule (2 mg total) by mouth at bedtime 5 01/07/20 25 Active cloNIDine (CATAPRES) 0.1 MG tablet Take 1 tablet (0.1 mg total) by mouth daily 5 01/08/20 25 Active acetaminophen 325 MG tablet Take 2 tablets (650 mg total) by mouth every 4 (four) hours as needed for mild pain (1-3) for up to 10 days 5 12/17/19 25 Active folic acid 1 MG tablet Take 1 tablet (1 mg total) by mouth daily 5 01/08/20 25 Active oxyCODONE (ROXICODONE) 5 mg immediate release tabletIndicatio ns:Open neck wound Take 1 tablet (5 mg total) by mouth every 4 (four) hours as needed for severe pain (7-10) for up to 10 days Max Daily Amount: 30 mg 5 12/17/19 25 Active tamsulosin (FLOMAX) 0.4 MG capsule Take 1 capsule (0.4 mg total) by mouth daily 5 01/08/20 25 Active thiamine (VITAMIN B-1) 100 MG tablet Take 2 tablets (200 mg total) by mouth daily 5 01/08/20 25 Active ibuprofen 600 MG tablet Take 1 tablet (600 mg total) by mouth every 6 (six) hours as needed for mild pain (1-3) or moderate pain (4-6) 5 01/07/20 25 Active cloNIDine (CATAPRES) 0.2 MG tablet Take 0.5 tablets (0.1 mg total) by mouth daily 12/07/19 Discontinu ed(Stop Taking at Discharge) prazosin (MINIPRESS) 2 MG capsule Take 1 capsule (2 mg total) by mouth at bedtime 12/07/19 Discontinu ed(Stop Taking at Discharge) Active Problems Problem Noted Date Diagnosed Date Obesity (BMI 30.0-34.9) 12/04/2024 Perforation of the trachea 12/01/2024 Encounters Date Type Department Care Team Description 12/07/2024 Orders Only [address] [phone] Adeel Douglas MD 12/01/2024 12:32 AM EST Anesthesia Event [address] [phone] Irvin Moncada MD 12/01/2024 Travel 11/30/2024 11:45 PM EST - 12/01/2024 2:23 AM EST Surgery [address] [phone] Adeel Douglas MD NECK EXPLORATION, TRACHEAL REPAIR 11/30/2024 10:54 PM EST - 12/07/2024 4:31 PM EST Hospital Encounter [address] [phone] Ramon Farah MD Xia, Tony, MD Petit Me, Jean C, DO Open neck wound (Primary Dx) Discharge Disposition: [facility] Hospital other than [facility] 11/30/2024 Procedure Pass [address] [phone] 11/30/2024 Procedure Pass [facility] - [address] [phone] from Last 3 Months Social History Tobacco Use Types Packs/Day Years Used Date Smoking Tobacco: Never Assessed Sex and Gender Information Value Date Recorded Sex Assigned at Male 11/30/2024 11:55 PM EST Legal Sex Male 10:49 PM EST Gender Identity Male 11/30/2024 11:55 PM EST Sexual Orientation Straight 11/30/2024 11 :55 PM EST Last Filed Vital Signs Vital Sign Reading [...] Mass Index 34.29 12/04/2024 8:00 AM EST Plan of Treatment Upcoming Encounters Date Type Department Care Team (Late st Contact Info) Description 12/18/2024 2:00 PM EST Consult [address] [phone] Health Maintenance Due Date Last Done Comments Annual Physical 1995 Hepatitis B Screening 2010 DTaP,Tdap,and Td Vaccines (1 - Tdap) 2011 COVID-19 Vaccine (2023-2 5 season) 2024 Influenza Vaccine (#1) 2024 HIB Vaccines Aged Out No longer eligi ble based on patient's age to complete this topic Hepatitis A Vaccine Aged Out No longe r eligible based on patient's age to complete this topic Pneumococcal Vaccines 0-64 y rs (includes High Risk) Aged Out No longer eligible based on patient's age to complete this topic Procedures Procedure Name Priority Date/Time Associated Diagnosis Comments RED TOP Routine 12/06/2024 11:23 AM EST EXTRA TUBES Routine 12/06/2024 11:23 AM EST PHOSPHORUS Routine 12/06/2024 11:23 AM EST MAGNESIUM Routine 12/06/2024 11:23 AM EST COMPREHENSIVE METABOLIC PANEL Routine 11:23 AM EST CBC AND AUTO DIFFERENTIAL Routine 2024 11:23 AM EST PHOSPHORUS Routine 12/04/2024 5:35 AM EST MAGNESIUM Routine 12/04/2024 5:35 AM EST COMPREHENSIVE METABOLIC PANEL Routine 5:35 AM EST CBC AND AUTO DIFFERENTIAL Routine 2024 5:35 AM EST ECG 12-LEAD Routine 12/03/2024 7:49 AM EST PHOSPHORUS Routine 12/03/2024 5:37 AM EST MAGNESIUM Routine 12/03/2024 5:37 AM EST COMPREHENSIVE METABOLIC PANEL Routine 5:37 AM EST CBC AND AUTO DIFFERENTIAL Routine 2024 5:37 AM EST XR CHEST 1 VW PORTABLE STAT 6:19 AM EST BLOOD GAS, ARTERIAL Routine 12/02/2024 6:17 AM EST TRIGLYCERIDES Routine 12/02/2024 5:20 AM EST PHOSPHORUS Routine 12/02/2024 5:20 AM EST MAGNESIUM Routine 12/02/2024 5:20 AM EST COMPREHENSIVE METABOLIC PANEL Routine 5:20 AM EST CBC AND AUTO DIFFERENTIAL Routine 2024 5:20 AM EST XR ABDOMEN 1 VW PORTABLE STAT 025 1:10 PM EST BLOOD GAS, ARTERIAL Routine 12/01/2024 8:36 AM EST MANUAL DIFFERENTIAL Routine 12/01/2024 4:44 AM EST CBC AND AUTO DIFFERENTIAL Routine 2024 4:44 AM EST MAGNESIUM Routine 12/01/2024 4:44 AM EST PHOSPHORUS Routine 12/01/2024 4:44 AM EST BASIC METABOLIC PANEL Routine 12/01/2024 4:44 AM EST TRIGLYCERIDES Routine 12/01/2024 4:44 AM EST XR CHEST 1 VW PORTABLE STAT 3:58 AM EST INITIATE PRESSURE INJURY PROTOCOL Routine 12/01/2024 2:58 AM EST INITIATE SKIN CARE PROTOCOL Routine 05/2025 2:58 AM EST SH IP INITIATE WEANING/DC OF MECH VENT PROTOCOL Routine 12/01/2024 2:58 AM EST ESOPHAGOGASTRODUODENOSCOPY 11/30 11:42 PM EST Trauma A BRONCHOSCOPY, FLEXIBLE 11:42 PM EST Trauma A TRAUMA GENERAL 11/30/2024 11:42 PM EST Trauma A CT ANGIO HEAD NECK W AND/OR WO CONTRAST REMIGIO 11/30/2024 11:18 PM EST XR CHEST 1 VW PORTABLE REMIGIO 11:10 PM EST TYPE AND SCREEN STAT 11/30/2024 10:59 PM EST TYPE AND SCREEN STAT 11/30/2024 10:59 PM EST ETHANOL STAT 11/30/2024 10:59 PM EST APTT STAT 11/30/2024 10:59 PM EST PROTIME-INR STAT 11/30/2024 10:59 PM EST BASIC METABOLIC PANEL STAT 11/30/2024 10:59 PM EST CBC AND AUTO DIFFERENTIAL STAT 2024 10:59 PM EST from Last 3 Months Results * Red Top (12/06/2024 11:23 AM EST) Extra Tube Auto resulted. 12/06/2024 3:26 PM EST [facility] Comment:Hold for add-ons. Blood Venipuncture / Unknown 12/06/2024 11:23 AM EST 12/06/2024 12:26 PM EST Rom Crystal DO LAB BLOOD ORDERABLES Final Re sult [facility] [address] [place] [address] * CBC and Auto Differential (12/06/2024 11:23 AM EST) Only the most recent of6 resultswithin the time period is included. WBC 6.4 4.8 - 11.2 10*3/??L 12/06/2024 12:17 PM EST [facility] RBC 4.94 4.00 - 5.90 10*6/??L 12/06/2024 12:17 PM EST [facility] HGB 14.2 14.0 - 17.2 g/dL 12/06/2024 12:17 PM EST [facility] HCT 42.2 40.0 - 52.0 % 12/06/2024 12:17 PM [facility] MCV 85.3 82.0 - 98.0 fL 12/06/2024 12:17 PM [facility] MCH 28.6 27.0 - 35.0 pg 12/06/2024 12:17 PM [facility] MCHC 33.6 32.0 - 37.0 g/dL 12/06/2024 12:17 PM [facility] RDW 14.5 12.0 - 15.0 % 12/06/2024 12:17 PM [facility] PLT 272 150 - 400 10*3/??L 12/06/2024 12:17 PM [facility] MPV 7.5 7.0 - 14.0 fL 12/06/2024 12:17 PM [facility] Neut % 71.3 45.0 - 85.0 % 12/06/2024 12:17 PM [facility] Lymph % 17.5 15.0 - 45.0 % 12/06/2024 12:17 PM [facility] [place] % 5.7 0.0 - 12.0 % 12/06/2024 12:17 PM [facility] Eos % 4.9 0.0 - 7.0 % 12/06/2024 12:17 PM [facility] Baso % 0.6 0.0 - 3.0 % 12/06/2024 12:17 PM [facility] NRBC% 0 0 /100 WBC /100 WBC 12/06/2024 12:17 PM [facility] Neut # 4.5 2.2 - 9.5 10*3/??L 12/06/2024 12:17 PM [facility] Lym # 1.1 0.7 - 5.0 10*3/??L 12/06/2024 12:17 PM [facility] [place] # 0.4 0.0 - 1.3 10*3/??L 12/06/2024 12:17 PM [facility] Eos # 0.3 0.0 - 0.4 10*3/??L 12/06/2024 12:17 PM EST [facility] Baso # 0.0 0.0 - 0.3 10*3/??L 12/06/2024 12:17 PM EST [facility] Blood Structure of part of right upper limb / Unknown Venipuncture / Unknown 12/06/2024 11:23 AM EST 12/06/2024 12:08 PM EST Franko Mohan CRIMINOLOGY PROFESSOR LAB BLOOD ORDERABLES Final R esult Performing Organization Address City/[facility] de Phone Number [facility] [address] [place] [address] * Phosphorus (12/06/2024 11:23 AM EST) Only the most recent of5 resultswithin the time period is included. Phosphorus 3.2 2.4 - 5.1 mg/dL 12/06/2024 12:31 PM EST [facility] Blood Structure of part of right upper limb / Unknown Venipuncture / Unknown 12/06/2024 11:23 AM EST 12/06/2024 12:08 PM EST Franko Mohan CRIMINOLOGY PROFESSOR LAB BLOOD ORDERABLES Final R esult Performing Organization Address [facility] de Phone Number [address] [address] * Magnesium (12/06/2024 11:23 AM EST) Only the most recent of5 resultswithin the time period is included. Magnesium 2.0 1.6 - 2.6 mg/dL 12/06/2024 12:31 PM EST [facility] Blood Structure of part of right upper limb / Unknown Venipuncture / Unknown 12/06/2024 11:23 AM EST 12/06/2024 12:08 PM EST Franko Mohan CRIMINOLOGY PROFESSOR LAB BLOOD ORDERABLES Final R esult [facility] [address] [place] [address] * (ABNORMAL) Comprehensive metabolic panel (12/06/2024 11:23 AM EST) Only the most recent of4 resultswithin the time period is included. Sodium 138 136 - 145 mEq/L 12/06/2024 12:41 PM EST [facility] Potassium 4.4 3.5 - 5.1 mEq/L 12/06/2024 12:41 PM [facility] Chloride 103 98 - 109 mEq/L 12/06/2024 12:41 PM [facility] CO2 29 20 - 31 mEq/L 12/06/2024 12:41 PM [facility] Anion Gap 6 4 - 15 mEq/L 12/06/2024 12:41 PM [facility] Glucose 85 70 - 100 mg/dL 12/06/2024 12:41 PM [facility] Creatinine 0.91 0.60 - 1.10 mg/dL 12/06/2024 12:41 PM [facility] eGFR (Male) >60 60 - 115 mL/min 12/06/2024 12:41 PM [facility] BUN 18 9 - 23 mg/dL 12/06/2024 12:41 PM [facility] Calcium 10.0 8.3 - 10.6 mg/dL 12/06/2024 12:41 PM [facility] Total Protein 7.4 5.7 - 8.2 g/dL 12/06/2024 12:41 PM [facility] Albumin 4.8 3.2 - 4.8 g/dL 12/06/2024 12:41 PM [facility] A/G Ratio 1.8 1.0 - 2.3 12/06/2024 12:41 PM [facility] Total Bilirubin 0.3 0.2 - 1.0 mg/dL 12/06/2024 12:41 PM [facility] AST 15 13 - 40 U/L 12/06/2024 12:41 PM [facility] Alkaline Phosphatase 64 46 - 116 IU/L 12/06/2024 12:41 PM EST [facility] ALT 43(H) 7 - 40 U/L 12/06/2024 12:41 PM EST [facility] Blood Structure of part of right upper limb / Unknown Venipuncture / Unknown 12/06/2024 11:23 AM EST 12/06/2024 12:08 PM EST Narrative [facility] - 12/06/2024 12:41 PM EST The calcium reference range has been changed as of 09/18/2024. us Franko Mohan CRIMINOLOGY PROFESSOR LAB BLOOD ORDERABLES Final R esult [facility] [address] [place] [address] * EKG electrocardiogram (12/03/2024 7:49 AM EST) 12/03/2024 7:49 AM EST Gerber Smith DO - 12/03/2024 4:55 PM EST Study Site: ?? [facility] ? Department: ?? [email or web address] ? Room: ? S-455 ? Test Date: ?2024-12-03 07:49:19 ? Referred By: ??ADEEL DOUGLAS ? Confirmed By: Gerber Lopes DO ? Measurements Intervals ?[place] ? Rate: ? 53 ? P: ?40 NC: ? 202 ?QRS: ?89 QRSD: ? 98 ? T: ?15 QT: ? 446 ? QTc: ?418 ? Interpretive Statements Sinus bradycardia with marked sinus arrhythmia No previous ECG available for comparison Electronically Signed On 12-03-2024 16:55:07 EST by Gerber Lopes DO Procedure Note Gerber Lopes DO - 12/03/2024 Study Site: [facility] Department: [place] [address] Room: [facility] Test Date: 2024-12-03 07:49:19 Referred By: ADEEL DOUGLAS Confirmed By: Gerber Lopes DO Measurements Intervals [place] Rate: 53 P: 40 NC: 202 QRS: 89 QRSD: 98 T: 15 QT: 446 QTc: 418 Interpretive Statements Sinus bradycardia with marked sinus arrhythmia No previous ECG available for comparison Electronically Signed On 12-03-2024 16:55:07 EST by Gerber Lopes DO Adeel Douglas MD ECG ORDERABLES Final Result * X-ray chest 1 view portable (12/02/2024 6:19 AM EST) Only the most recent of3 resultswithin the time period is included. Anatomical Region Laterality Modality Chest, Ortho Chest [...] There is no consolidating airspace disease. RS: [id number] Procedure Note Michael Inman MD - 12/03/2024 [...] field. There is no consolidatingairspace disease. RS: [id number] Franko Mohan CRIMINOLOGY PROFESSOR IMG DIAGNOSTIC IMAGING ORDER BLAYNE Final Result * (ABNORMAL) Blood gas, arterial (12/02/2024 6:17 AM EST) Only the most recent of2 resultswithin the time period is included. pH, Arterial 7.38 7.35 - 7.45 12/02/2024 6:23 AM EST [facility] pCO2, Arterial 49(H) 35 - 45 mmHg 12/02/2024 6:23 AM EST [facility] pO2, Arterial 107(H) 80 - 100 mmHg 12/02/2024 6:23 AM EST [facility] HCO3, Arterial 29.0(H) 22.0 - 26.0 mmol/L 12/02/2024 6:23 AM EST [facility] Base Excess, Arterial 3.0(H) -3.3 - 2.3 mmol/L 12/02/2024 6:23 AM EST [facility] O2 Sat. Arterial 98.0(H) 85.0 - 97.0 % 12/02/2024 6:23 AM EST [facility] Vent Mode AC 12/02/2024 6:23 AM EST [facility] Tidal Volume 500 mL 12/02/2024 6:23 AM EST [facility] Rate-Set 14 RPM 12/02/2024 6:23 AM EST [facility] FIO2 30 % 12/02/2024 6:23 AM EST [facility] PEEP 5.0 cm/H2O 12/02/2024 6:23 AM EST [facility] Equipment Type Ventilator 12/02/2024 6:23 AM EST [facility] Puncture Site RB 12/02/2024 6:23 AM EST [facility] Drawn By af 12/02/2024 6:23 AM EST [facility] Blood, Arterial 12/02/2024 6 :17 AM EST 12/02/2024 4:23 AM EST us Franko Mohan NP LAB BLOOD ORDERABLES Final R esult [facility] [address] [place] [address] * Triglycerides (12/02/2024 5:20 AM EST) Only the most recent of2 resultswithin the time period is included. Triglycerides 137 <150 mg/dL 12/02/2024 7:52 AM EST [facility] Blood Venipuncture / Unknown 12/02/2024 5:20 AM EST 12/02/2024 7:01 AM EST Adeel Douglas MD LAB BLOOD ORDERABLES Final Resul t [facility] [address] [place] [id number] * X-ray abdomen 1 view portable (12/01/2024 [...] calcifications or acute osseous abnormality detected. RS: [id number] Narrative 12/01/2024 1:22 PM EST HISTORY: Orogastric [...] pathologic calcifications or acuteosseous abnormality detected. RS: [id number] Franko Mohan NP IMG DIAGNOSTIC IMAGING ORDER BLAYNE Final Result * (ABNORMAL) Manual Differential (12/01/2024 4:44 AM EST) WBC 10.4 10*3/??L 12/01/2024 5:08 AM EST [facility] Neut % 95(H) 40 - 85 % 12/01/2024 5:08 AM [facility] Lymph % 5(L) 15 - 45 % 12/01/2024 5:08 AM EST [facility] Total Cells Count 100 025 5:08 AM [facility] Platelet Estimate Normal Normal 025 5:08 AM EST [facility] Anisocytosis Slight None-Sligh t 12/01/2024 5:08 AM EST [facility] Poikilocytosis Slight None-Sligh t 12/01/2024 5:08 AM [facility] Toxic Granulation Slight(A) None Seen 025 5:08 AM [facility] Blood Venipuncture / Unknown 12/01/2024 4:44 AM EST 12/01/2024 4:47 AM EST us Adeel Douglas MD LAB BLOOD ORDERABLES Final Resul t [facility] [address] [place] [id number] * (ABNORMAL) Basic metabolic panel (12/01/2024 4:44 AM EST) Only the most recent of2 resultswithin the time period is included. Sodium 144 136 - 145 mEq/L 12/01/2024 5:09 AM [facility] Potassium 4.0 3.5 - 5.1 mEq/L 12/01/2024 5:09 AM [facility] Chloride 113(H) 98 - 109 mEq/L 12/01/2024 5:09 AM [facility] CO2 22 20 - 31 mEq/L 12/01/2024 5:09 AM [facility] Anion Gap 9 4 - 15 mEq/L 12/01/2024 5:09 AM [facility] Glucose 112(H) 70 - 100 mg/dL 12/01/2024 5:09 AM [facility] Creatinine 0.94 0.60 - 1.10 mg/dL 12/01/2024 5:09 AM [facility] eGFR (Male) >60 60 - 115 mL/min 12/01/2024 5:09 AM EST [facility] BUN 12 9 - 23 mg/dL 12/01/2024 5:09 AM EST [facility] Calcium 8.6 8.3 - 10.6 mg/dL 12/01/2024 5:09 AM EST [facility] Blood Venipuncture / Unknown 12/01/2024 4:44 AM EST 12/01/2024 4:47 AM EST Narrative [facility] - 12/01/2024 5:09 AM EST The calcium reference range has been changed as of 09/18/2024. us Adeel Douglas MD LAB BLOOD ORDERABLES Final Resul t [facility] [address] [place] [id number] * CT angiogram head neck with and/or [...] for repair of a tracheal injury. RS: [id number] Narrative 12/01/2024 9:04 AM EST HISTORY: Neck [...] for repair of a tracheal injury. RS: [id number] us Adeel Douglas MD IMG CT ORDERABLES Final Result * Type and Screen (11/30/2024 10:59 PM EST) ABO A 12/01/2024 12:18 AM EST [facility] RH Negative 12/01/2024 12:18 AM EST [facility] Antibody Screen Negative 12/01/2024 12:18 AM EST [facility] Blood Venipuncture / Unknown 11/30/2024 10:59 PM EST 11/30/2024 11:05 PM EST us Adeel Douglas MD BLOOD BANK TEST ORDERABLES Final Result Performing Organization Address [facility] Co de Phone Number [facility] Blood Bank [address] [phone] * APTT (11/30/2024 10:59 PM EST) APTT 32.3 25.1 - 36.5 seconds 11/30/2024 11:19 PM EST [facility] Blood Structure of right ureter / Unknown Venipuncture / Unknown 11/30/2024 10:59 PM EST 11/30/2024 11:05 PM EST Narrative [facility] - 11/30/2024 11:19 PM EST New reference range reflects new method. us Adeel Douglas MD LAB BLOOD ORDERABLES Final Resul t Performing Organization Address City/[facility] Co de Phone Number [facility] [address] [place] [address] * Protime-INR (11/30/2024 10:59 PM EST) Protime 10.8 9.4 - 12.5 seconds 11/30/2024 11:19 PM EST [facility] INR 0.93 0.79 - 1.06 11/30/2024 11:19 PM EST [facility] Blood Structure of right ureter / Unknown Venipuncture / Unknown 11/30/2024 10:59 PM EST 11/30/2024 11:05 PM EST Narrative [facility] - 11/30/2024 11:19 PM EST New reference range reflects new method INR Recommendations for Oral Anticoagulant Therapy ? Populations ?INR Value ? Low Intensity OAC Therapy ?1.5-2.0 Mod Intensity OAC Therapy ?2.0-3.0 High Intensity OAC Therapy ?? 2.5-4.0 us Aedel Douglas MD LAB BLOOD ORDERABLES Final Resul t Performing Organization Address [facility] Co de Phone Number [facility] [address] [place] [address] * (ABNORMAL) blood alcohol (11/30/2024 10:59 PM EST) Ethanol Lvl 149(H) <10 mg/dL 11/30/2024 11:29 PM EST [facility] Blood Structure of right ureter / Unknown Venipuncture / Unknown 11/30/2024 10:59 PM EST 11/30/2024 11:05 PM EST Adeel Douglas MD LAB BLOOD ORDERABLES Final Resul t Performing Organization Address [facility] Co de Phone Number [facility] [address] [place] [address] from Last 3 Months Insurance MEDICAID PCP PLAN Advance Directives For more information, please contact: [phone] Documents on File Type Date Recorded Patient Official Court Interpreter Expl [facility] Care Proxy 12/05/2024 11:38 AM 202412 * Full Code (Latest Code Status on File) Date Activated Date Inactivated Comments 12/01/2024 2:58 AM 12/07/2024 7:31 PM Care Teams Electrical Integrator Relationship Specialty Start [place] [id number] PCP - General 12/01/24
[2024-12-07 21:00] VITALS: BP 136/62; PULSE 78; RESP 18; TEMP 36.3; O2SAT 99
[2024-12-07 22:41] VITALS: BMI 30.3
[2024-12-07] MEDS: Prazosin HCL 1 MG CAPSULE 2 MG PO (22:48)
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
[2024-12-08 08:00] VITALS: RESP 16
[2024-12-08] MEDS: ARIPiprazole 5 MG TABLET PO (09:09)
[2024-12-08] MEDS: busPIRone HCl 10 MG TABLET PO ×3 (09:09→20:19)
[2024-12-08] MEDS: Folic Acid 1 MG TABLET PO (09:09)
[2024-12-08] MEDS: Topiramate 25 MG TABLET 50 MG PO ×2 (09:09→20:20)
[2024-12-08] MEDS: Thiamine HCL 100 MG TABLET PO (09:10)
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
[2024-12-08 09:28] LABS: Estimated Average Glucose 105 mg/dL; Hemoglobin A1C 125.2254 umol/L; Hemoglobin A1c % 5.3 % (<6.0); Total Hemoglobin (HGBA1C) 3678.6686 umol/L
[2024-12-08 09:43] LABS: Cholesterol 187 mg/dL (<200); HDL Cholesterol 48 mg/dL (>40); LDL Cholesterol Calculated 116 mg/dL (<100); Magnesium 1.9 mg/dL (1.6-2.6); Triglycerides 116 mg/dL (<150)
[2024-12-08 09:53] LABS: Free T4 (Free Thyroxine) 1.21 ng/dL (0.71-1.85); Thyroid Stimulating Hormone 2.73 uIU/mL (0.32-4.0)
[2024-12-08 10:02] LABS: Folate 7.8 ng/mL (> or = 4.0); Vitamin B12 477 pg/mL (200-900)
[2024-12-08] MEDS: Nicotine Polacrilex 2 MG GUM 4 MG BUCCAL ×3 (10:19→18:18)
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
[2024-12-08] MEDS: clonazePAM 0.5 MG TABLET PO ×2 (14:00→19:00)
[2024-12-08] MEDS: Acetaminophen 325 MG TABLET 650 MG PO (14:01)
[2024-12-08 18:04] LABS: Influenza A PCR NEGATIVE (Negative); Influenza B PCR NEGATIVE (Negative); Resp Syncy Virus RNA Qual PCR NEGATIVE (Negative); SARS COV2 PCR INHOUSE NEGATIVE (Negative)
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
[2024-12-08 20:00] VITALS: BP 132/67; PULSE 86; RESP 18; TEMP 36.4; O2SAT 97
[2024-12-08] MEDS: Famotidine 20 MG TABLET PO (20:19)
[2024-12-08] MEDS: Prazosin HCL 1 MG CAPSULE 2 MG PO (20:19)
[2024-12-09] MEDS: Nicotine Polacrilex 2 MG GUM 4 MG BUCCAL ×5 (02:06→19:08)
[2024-12-09] MEDS: Acetaminophen 325 MG TABLET 650 MG PO (02:06)
--- NOTE | 2024-12-09 06:49 | PC.NURSE ---
@0200 pt approached RN for Tylenol. Pt reports 8/ pain related to working out too hard yesterday Indicates sore muscles to arms, chest, back, and shoulders.
[2024-12-09 08:00] VITALS: BP 146/81; PULSE 90; RESP 16; TEMP 36.9; O2SAT 97
[2024-12-09] MEDS: Folic Acid 1 MG TABLET PO (08:13)
[2024-12-09] MEDS: Topiramate 25 MG TABLET 50 MG PO ×2 (08:13→21:12)
[2024-12-09] MEDS: busPIRone HCl 10 MG TABLET PO ×3 (08:13→21:13)
[2024-12-09] MEDS: Thiamine HCL 100 MG TABLET PO (08:13)
[2024-12-09] MEDS: clonazePAM 0.5 MG TABLET PO ×3 (08:13→21:13)
[2024-12-09] MEDS: buPROPion HCL 75 MG TABLET 37.5 MG PO (08:43)
[2024-12-09] MEDS: ARIPiprazole 10 MG TABLET PO (08:43)
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
[2024-12-09] MEDS: cloNIDine HCL 0.1 MG TABLET PO ×2 (14:04→21:12)
[2024-12-09 20:00] VITALS: BP 115/57; PULSE 89; RESP 16; TEMP 36.3; O2SAT 97
[2024-12-09 21:12] VITALS: BP 115/57
[2024-12-09 21:13] VITALS: BP 115/57
[2024-12-09] MEDS: Prazosin HCL 1 MG CAPSULE 3 MG PO (21:13)
[2024-12-09] MEDS: traZODone HCL 50 MG TABLET PO (21:13)
[2024-12-09] MEDS: hydrOXYzine HCL 25 MG TABLET PO (21:13)
[2024-12-10] MEDS: Nicotine Polacrilex 2 MG GUM 4 MG BUCCAL (06:36)
[2024-12-10 08:00] VITALS: BP 117/65; PULSE 77; RESP 16; TEMP 36.9; O2SAT 98
[2024-12-10] MEDS: Folic Acid 1 MG TABLET PO (08:13)
[2024-12-10] MEDS: busPIRone HCl 10 MG TABLET PO (08:13)
[2024-12-10] MEDS: Thiamine HCL 100 MG TABLET PO (08:13)
[2024-12-10] MEDS: Topiramate 25 MG TABLET 50 MG PO (08:13)
[2024-12-10] MEDS: buPROPion HCL 75 MG TABLET 37.5 MG PO (08:13)
[2024-12-10] MEDS: ARIPiprazole 10 MG TABLET PO (08:13)
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
[2024-12-10] MEDS: clonazePAM 1 MG TABLET PO (09:10)
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
== END 2024-12-10 11:12 | disposition home or self-care (01) | DRG 752 ==
PROVIDERS: Student in an Organized Health Care Education/Training Program; Admitting Provider Clinical Nurse Specialist Psychiatric/Mental Health, Adult; Visit Provider Clinical Nurse Specialist Psychiatric/Mental Health, Adult
DX: F60.9 Personality disorder, unspecified (principal); F31.9 Bipolar disorder, unspecified; F43.12 Post-traumatic stress disorder, chronic; Z20.822 Contact with and (suspected) exposure to COVID-19; Z91.52 Personal history of nonsuicidal self-harm; Z87.891 Personal history of nicotine dependence; Z79.899 Other long term (current) drug therapy
CPT/HCPCS: 0241U; 36415; 80061; 82607; 82746; 83036; 83735; 84439; 84443

== ENCOUNTER → 2024-12-07 19:34 | Outpatient (BNV) | payer MEDICAID, SELFPAY | PROVIDERS: Admitting Provider Clinical Nurse Specialist Psychiatric/Mental Health, Adult; Visit Provider Student in an Organized Health Care Education/Training Program | DX: Z00.8 Encounter for other general examination (principal) | CPT/HCPCS: 99222 ==

== ENCOUNTER → 2024-12-07 19:34 | Outpatient (BNV) | payer OTHER, SELFPAY | PROVIDERS: Admitting Provider Clinical Nurse Specialist Psychiatric/Mental Health, Adult; Visit Provider Clinical Nurse Specialist Psychiatric/Mental Health, Adult | DX: F60.9 Personality disorder, unspecified (principal); F31.9 Bipolar disorder, unspecified; F43.11 Post-traumatic stress disorder, acute | CPT/HCPCS: 99232; 99499 ==